=== PATIENT | female | born 1955 | race Caucasian/White ===

== ENCOUNTER 2022-12-10 14:22 | Inpatient (IN) ==
[2022-12-10] MEDS ORDERED: MoRPHine SULFATE 4 MG/ML 1 ML CARP\\VIAL IV PRN (15:01)
[2022-12-10] MEDS ORDERED: MoRPHine SULFATE 2 MG/ML CARP IV PRN ×2 (15:01→16:55)
[2022-12-10] MEDS ORDERED: SODIUM CHLORIDE 0.9% 1000ML 1,000 ML IV SCH (15:15)
--- NOTE | 2022-12-10 15:15 | Communication Note ---
Date of Service: December 10, 2022 I personally obtained a history from and examined the patient. Refer to Dr. Grimaldo's note for further details. Resident Activity Tracking Resident Involvement: Resident Care Provided Care Provided: Adult ED
[2022-12-10 15:17] LABS: Basophils # (auto) 0.03 K/uL (0-0.2); Basophils % (auto) 0.3 %; Eosinophils # (auto) 0.02 K/uL (0-0.50); Eosinophils % (auto) 0.2 %; Hematocrit (blood only) 40.5 % (37.0-47.0); Immature Granulocytes # (auto) 0.05 K/uL (0.01-0.20); Immature Granulocytes % (auto) 0.4 %; Lymphocytes # (auto) 0.36 K/uL (1.2-3.4); Lymphocytes % (auto) 3.1 %; Mean Corpuscular Hemoglobin 31.7 pg (25.0-34.0); Mean Corpuscular Hgb Conc 34.6 g/dL (32.0-36.0); Mean Corpuscular Volume 91.6 fL (80.0-100.0); Mean Platelet Volume 9.5 fL (9.4-12.4); Monocytes # (auto) 0.83 K/uL (0.11-0.59); Monocytes % (auto) 7.2 %; Neutrophils % (auto) 88.8 %; Platelet Count 270 K/uL (130-400); RDW Coefficient of Variation 13.9 % (11.5-14.5); RDW Standard Deviation 47.1 fL (36.4-46.3); Red Blood Count 4.42 M/uL (4.20-5.40); White Blood Count 11.59 K/ul (4.8-10.8)
[2022-12-10] MEDS ORDERED: ACETAMINOPHEN 1,000 MG/100 ML VIAL IV ONE (15:20)
--- NOTE | 2022-12-10 15:21 | XRay Report ---
SINGLE VIEW PELVIS; 2 VIEWS LEFT HIP CLINICAL HISTORY: Fall. Left hip pain. FINDINGS: AP view of the pelvis with AP and crosstable lateral views of the left hip are obtained. No prior studies are available for comparison at the time of dictation. The skeletal structures are ost eopenic. There is an impacted, mildly displaced, and angulated fracture of the left femoral neck. Ove rlying soft tissue edema is noted. No additional fracture is seen involving the right hip or the bony pelvis. Mild arthritic change involving space narrowing is seen in the hips. The sacroiliac joints a re normal. Lumbosacral spondylosis is partially visualized. Vascular calcifications are seen in the p ant. IMPRESSION: Left femoral neck fracture as above. Electronically signed by: Zenon Restrepo M.D. 12/10/2022 3:20 PM
--- NOTE | 2022-12-10 15:27 | XRay Report ---
SUPINE PORTABLE AP CHEST RADIOGRAPH CLINICAL HISTORY: Hip fracture. COMPARISON STUDY: No previous studies for comparison. FINDINGS: Lung volumes are normal. Lungs are clear. There is no pneumothorax or pleural effusion. Car diac size is normal. Mediastinal contours are normal. There is no evidence for pulmonary edema. Skinf old projects over the left lower chest. Mild right lower lung interstitial thickening is noted. This may be chronic. IMPRESSION: 1. No definite acute cardiopulmonary findings. 2. Mild asymmetric right lower lung interstitial thickening. This may be chronic. ACT 112: Negative or not required by law. Electronically signed by: Jose Elder M.D. 12/10/2022 3:25 PM
[2022-12-10 15:34] LABS: Albumin Globulin Ratio 1.8 (0.9-2); Albumin Level 4.6 gm/dl (3.4-5.0); BUN Creatinine Ratio 10.1 (10-20); Bilirubin,Total 0.6 mg/dl (0.2-1.0); Calcium 9.8 mg/dl (8.5-10.1); Est GFR (African American) 67.9 ml/min; Est GFR (Non-African American) 58.6 ml/min; Globulin 2.5 gm/dl (2.5-4.0); Potassium 3.5 mmol/L (3.5-5.1); Total Protein 7.1 gm/dl (6.0-8.3)
--- NOTE | 2022-12-10 15:43 | Electrocardiogram Report ---
Test Reason : Blood Pressure : / mmHG Vent. Rate : 062 BPM Atrial Rate : 062 BPM P-R Int : 138 ms QRS Dur : 104 ms QT Int : 428 ms P-R-T Axes : 077 064 077 degrees QTc Int : 434 ms Normal sinus rhythm Normal ECG No previous ECGs available Confirmed by Luis Smith ([id number]) on 12/10/2022 3:42:50 PM Referred By: Confirmed By:Luis Smith
[2022-12-10 16:03] LABS: Appearance Urine Clear (Clear); Bilirubin Urine Negative (Negative); Blood Urine Negative (Negative); Color Urine Yellow; Glucose Urine UA Negative (Negative); Ketones Urine Trace (Negative); Leukocyte Esterase Urine Negative (Negative); Nitrite Urine Negative (Negative); Protein Urine Negative (Negative); Specific Gravity Urine 1.011 (1.000-1.030); Urobilinogen Urine Negative (Negative); pH Urine 6.5 (4.5-7.5)
[2022-12-10] MEDS ORDERED: NALOXONE HCL 0.4 MG/1 ML VIAL/CARP IV PRN (16:55)
[2022-12-10] MEDS ORDERED: ONDANSETRON INJ 2 MG/ML 2 ML VIAL IV PRN (16:55)
[2022-12-10] MEDS ORDERED: ALUMINUM/MAGNESIUM SUSP 30 ML UDC PO PRN (16:55)
[2022-12-10] MEDS ORDERED: MAGNESIUM HYDROXIDE SUSP 30 ML UDC PO PRN (16:55)
[2022-12-10] MEDS ORDERED: bisacodyL 10 MG SUPP PR PRN (16:55)
--- NOTE | 2022-12-10 17:28 | History & Physical Report ---
Date of Service December 10, 2022 Assessment & Plan (1) Fracture of femoral neck, left: Plan: 67-year-old female with LEFT femoral neck fracture status post ground-level fall knee admitted by hospitalist service for evaluation for surgical intervention. * Patient sustained a ground-level fall. Thankfully, she is without significant pain at this time. We will order as needed pain medications. * Consult orthopedic surgery for definitive management. * Complete bedrest at this time. * Currently working on receiving remaining records from the [facility] in [place]. * Thankfully, they did share her med list, so we have a general idea of the patient's medical history. * Will make NPO after midnight. (2) Hypertension: Plan: * Continue home antihypertensives as prescribed. (3) Dyslipidemia: Plan: * Remains on statin. (4) Bipolar disorder: Plan: * Continue home medication combination (5) PTSD (post-traumatic stress disorder): Plan: * Continues to be well balanced at home (6) Multiple sclerosis: Plan: * Patient without previous flares and has not required steroids in the past. She will continue with her home medications. (7) Cigarette smoker: Plan: * Encouraged smoking cessation. History of Present Illness Chief Complaint: LEFT Femoral Neck Fracture Primary Care Provider: [facility] Patient is a 67-year-old female with a significant past medical history of hypertension, dyslipidemia, depression, PTSD, osteopenia, osteoporosis, multiple sclerosis and thyroid goiter. Patient follows with the [facility] in [place]. She moved to [facility] approximately 2 years ago, but continues with care there institution. She reports that she sustained a ground-level fall landing on the lateral aspect of her LEFT hip today while outside smoking a cigarette. She did not strike her head. There is no loss of consciousness. The patient had no prefall symptoms of headaches, dizziness, lightheadedness, nausea, vomiting, diaphoresis, or presyncope otherwise. She reports that she was able to crawl into a seated position and eventually was able to ambulate to her apartment. When attempting to tie her shoes, she had intense pain to the LEFT-sided hip which caused her to fall again landing on her RIGHT knee. Patient intermittently complains of pain to the LEFT-sided hip. She denies any prior history of fracture or injury otherwise. Patient takes no blood thinners. She is uncertain of all of her medications, but reports that they are on record at the [facility]. She reports no history of significant surgeries in the past. She does smoke approximate 5 to 6 cigarettes daily. Patient denies any current headache, dizziness, headedness, chest pain, palpitations and shortness of breath, nausea, vomiting, abdominal discomfort, or numbness/weakness to the extremities. Allergies Allergy/AdvReac Type Severity Reaction Status Date / Time alprazolam [From Xanax] Allergy Cramping Verified 12/10/22 15:34 of the Muscles aripiprazole [From Abilify] Allergy Cramping Verified 12/10/22 15:34 of the Muscles lisinopril Allergy Cramping Verified 12/10/22 15:34 of the Muscles Home Medications Medication Instructions Recorded Confirmed Type alendronate 70 mg tablet 70 mg PO WK 12/10/22 12/10/22 History amlodipine 10 mg tablet 10 mg PO DAILY 12/10/22 12/10/22 History baclofen 10 mg tablet 10 mg PO BID 12/10/22 12/10/22 History calcium citrate 315 mg-vitamin D3 2 tab PO DAILY 12/10/22 12/10/22 History 5 mcg (200 unit) tablet (Calcium Citrate + D) cyclobenzaprine 10 mg tablet 10 mg PO BID PRN Muscle Spasm 12/10/22 12/10/22 History dalfampridine 10 mg 10 mg PO Q12H 12/10/22 12/10/22 History tablet,extended release,12 hr docusate sodium 100 mg capsule 100 mg PO DAILY 12/10/22 12/10/22 History fluticasone propionate 50 2 spray intranasal DAILY 12/10/22 12/10/22 History mcg/actuation nasal spray,suspension (Flonase Allergy Relief) gabapentin 400 mg capsule 400 mg PO TID 12/10/22 12/10/22 History lamotrigine 200 mg tablet 200 mg PO BID 12/10/22 12/10/22 History (Lamictal) oxybutynin chloride 5 mg 5 mg PO HS 12/10/22 12/10/22 History tablet,extended release 24 hr pantoprazole 40 mg tablet,delayed 40 mg PO DAILY 12/10/22 12/10/22 History release potassium chloride 20 mEq 10 meq PO DAILY 12/10/22 12/10/22 History tablet,extended release rosuvastatin 20 mg tablet 10 mg PO HS 12/10/22 12/10/22 History venlafaxine 150 mg 150 mg PO BID 12/10/22 12/10/22 History capsule,extended release 24 hr ziprasidone HCl 20 mg capsule 20 mg PO DAILY 12/10/22 12/10/22 History Past Med/Surg History Social History Smoking Status: Current every day smoker Tobacco Type: Cigarettes Feels Safe at Home: Yes Review of Systems Review of Systems: A complete 10 point review of systems was reviewed with the patient with pertinent positives and negatives as per history of present illness. All else were negative. Physical Exam Physical Exam: VITAL SIGNS - Vital signs and nursing notes were reviewed. GENERAL - 67-year-old female appearing her stated age and in noticeable discomfort throughout the exam. HEAD - NC/AT. EYES - PERRL with EOMI bilaterally. Sclera anicteric. NOSE - Midline and without cyanosis. No epistaxis or purulent drainage noted. MOUTH/OROPHARYNX - Without perioral cyanosis. NECK - Neck with FROM. LUNGS - Chest wall symmetric without accessory muscle use, intercostals retractions, or central cyanosis. Normal vesicular breath sounds CTA B/L. No wheezes, rales, or rhonchi appreciated. CARDIAC - RRR with S1/S2. No murmur, rubs, or gallops appreciated. ABDOMEN - Abdominal contour without pulsations or visible masses. BS normoactive all four quadrants. No tenderness, palpable masses, hepatosplenomegaly, or ascites noted. MUSCULOSKELETAL - LEFT hip with moderate tenderness to palpation appreciated o randee the lateral malleolus. No tenderness extending into the upper leg or buttocks. Decreased AROM at affected joint. NEUROLOGIC/VASCULAR - Neurovascularly intact distally with +3/5 dorsalis pedis pulses palpated bilaterally. Normal sensation to light and sharp touch appreciated distally. PSYCH - A&Ox3 and cooperates fully with examiner. Pt is very pleasant and interacts well with examiner. Results & Data Results & Data ([facility]) Vital Signs (Past 12 Hours) Vital Signs Temp Pulse Pulse Resp BP BP Pulse Ox 12/10/22 16:40 83 23 96 12/10/22 16:30 87 20 99 12/10/22 16:20 73 20 98 12/10/22 16:10 71 20 97 12/10/22 16:00 75 24 97 12/10/22 16:00 183/90 H 12/10/22 15:50 78 21 97 12/10/22 15:45 69 18 95 12/10/22 15:45 178/90 H 12/10/22 15:40 82 19 90 12/10/22 15:30 80 21 92 12/10/22 15:30 153/107 H 12/10/22 15:20 79 20 97 12/10/22 15:15 178/97 H 12/10/22 15:15 76 19 91 12/10/22 15:12 71 14 90 12/10/22 14:50 67 20 97 12/10/22 14:45 202/122 H 12/10/22 14:45 64 13 98 12/10/22 14:40 74 12 96 12/10/22 14:31 63 22 95 12/10/22 14:34 71 20 188/98 H 98 12/10/22 14:30 36.7 C 65 20 188/98 H 95 O2 Del Method 12/10/22 16:40 12/10/22 16:30 12/10/22 16:20 12/10/22 16:10 12/10/22 16:00 12/10/22 16:00 12/10/22 15:50 12/10/22 15:45 12/10/22 15:45 12/10/22 15:40 12/10/22 15:30 12/10/22 15:30 12/10/22 15:20 12/10/22 15:15 12/10/22 15:15 12/10/22 15:12 12/10/22 14:50 12/10/22 14:45 12/10/22 14:45 12/10/22 14:40 12/10/22 14:31 12/10/22 14:34 Room Air 12/10/22 14:30 Room Air Supervising Physician Co-Signing Physician Notes Patient seen and examined, chart reviewed, case discussed with Francisco J Tipton PA-C and I agree with the assessment and plan as above except as otherwise noted Labs and images reviewed Ricarda is a 67-year-old female with a past medical history of tobacco use, PTSD, bipolar disorder, dyslipidemia, hypertension who presents after having a mechanical ground-level fall striking her left hip without lightheadedness/dizziness/syncope/presyncope and who was found to have a hip fracture on evaluation. At bedside left hip is tender, leg is slightly s hortened, able to wiggle toes bilaterally and sensation to soft touch is intact bilaterally without asymmetry. Cap refill is brisk bilaterally, PT pulses intact bilaterally. No wheezing, no lightheadedness, no chest pain. Will admit with surgical consultation for operative intervention of left femoral neck fracture. PG Care Time/CCT Total # of Minutes Spent Total Time Spent with Patient: Total time spent is greater than 50% in coordination of care (as documented) at patient's floor/unit and/or counseling patient: Coding Level of Care Code 24378 INT INP/OBS CARE 375MIN Diagnoses Fracture of femoral neck, left S72.002A Hypertension I10 Dyslipidemia E78.5 Bipolar disorder F31.9 PTSD (post-traumatic stress disorder) F43.10 Multiple sclerosis G35 Cigarette smoker F17.210 Time Spent (min) 80
[2022-12-10 18:13] LABS: INR 0.9 (0.9-1.1); Partial Thromboplastin Time 26.4 Seconds (21.0-31.0); Prothrombin Time 9.8 Seconds (9.0-12.0)
--- NOTE | 2022-12-10 18:48 | Emergency Department Note ---
Impression & Plan Closed left hip fracture ED Provider Note INFORMANT: Patient ED PROVIDER(S): David Grimaldo DO CHIEF COMPLAINT: Fall, left hip pain PLAN: Disposition: Admission Condition: Stable Outpatient prescription management: none Referral: PCP MEDICAL DECISION MAKING: This is a 67-year-old female who presents to the ED with a chief complaint of left hip pain. The patient had a ground-level fall earlier today. She has some shortening and internal rotation of her left leg. Denies striking her head or loss of consciousness. The patient has good distal pulses. Her physical exam reveals some discomfort with motion. A x-ray shows a left hip fracture. Chest x-ray was negative for pneumonia or pneumothorax. Normal sinus rhythm was noted on the EKG. CBC did not show anemia or leukocytosis. No electrolyte abnormality. Kidney function was adequate. Urine did not show infection. I did speak with the hospitalist about the patient. He will see the patient for further evaluation and care. Triage Nursing notes reviewed. Vital Signs: reviewed Prior /Outside records reviewed: none Differential diagnosis: Differential includes hip fracture, other injuries, anemia, electrolyte abnormality, other Diagnostics, as interpreted by me: 12 lead ECG: Normal sinus rhythm at a rate of 62. No ST elevation. No PVCs. Normal QTC. Cardiac Monitoring: none Medical decision rules: none Imaging studies: X-ray of the left hip reveals a hip fracture. Chest x-ray did not show acute process. Procedures: none. Critical care: none. HPI: See MDM above. PAST MEDICAL HISTORY: See Below PAST SURGICAL HISTORY: See Below SOCIAL HISTORY: See Below HOME MEDICATIONS: See Below ALLERGIES: See Below VITALS: See Below PHYSICAL EXAMINATION: CONSTITUTIONAL/VITAL SIGNS: Reviewed GENERAL: Non-toxic in appearance. INTEGUMENTARY: Warm, dry, and [place]. HEAD: Normocephalic. EYES: without scleral icterus. ENT/OROPHARYNX: clear and moist. RESPIRATORY: No increased work of breathing. Lungs clear. CARDIOVASCULAR: Regular rate. Regular rhythm. GI/ABDOMEN: Soft and nontender. . EXTREMITIES: Left leg is shortened and internally rotated with discomfort of the left hip with any motion and palpation. NEUROLOGICAL: Intact without focal deficits. PSYCHIATRIC: Normal affect. MUSCULOSKELETAL: Normal. TRIAGE NURSING DOCUMENTATION REVIEWED. Past Med/Surg History Social History Smoking Status: Current every day smoker Tobacco Type: Cigarettes Feels Safe at Home: Yes Allergies Allergies Allergy/AdvReac Type Severity Reaction Status Date / Time alprazolam [From Xanax] Allergy Cramping Verified 12/10/22 15:34 of the Muscles aripiprazole [From Abilify] Allergy Cramping Verified 12/10/22 15:34 of the Muscles lisinopril Allergy Cramping Verified 12/10/22 15:34 of the Muscles Home Meds Home Medications Medication Instructions Recorded Confirmed alendronate 70 mg tablet 70 mg PO WK 12/10/22 12/10/22 amlodipine 10 mg tablet 10 mg PO DAILY 12/10/22 12/10/22 baclofen 10 mg tablet 10 mg PO BID 12/10/22 12/10/22 calcium citrate 315 mg-vitamin D3 2 tab PO DAILY 12/10/22 12/10/22 5 mcg (200 unit) tablet (Calcium Citrate + D) cyclobenzaprine 10 mg tablet 10 mg PO BID PRN Muscle Spasm 12/10/22 12/10/22 dalfampridine 10 mg 10 mg PO Q12H 12/10/22 12/10/22 tablet,extended release,12 hr docusate sodium 100 mg capsule 100 mg PO DAILY 12/10/22 12/10/22 fluticasone propionate 50 2 spray intranasal DAILY 12/10/22 12/10/22 mcg/actuation nasal spray,suspension (Flonase Allergy Relief) gabapentin 400 mg capsule 400 mg PO TID 12/10/22 12/10/22 lamotrigine 200 mg tablet 200 mg PO BID 12/10/22 12/10/22 (Lamictal) oxybutynin chloride 5 mg 5 mg PO HS 12/10/22 12/10/22 tablet,extended release 24 hr pantoprazole 40 mg tablet,delayed 40 mg PO DAILY 12/10/22 12/10/22 release potassium chloride 20 mEq 10 meq PO DAILY 12/10/22 12/10/22 tablet,extended release rosuvastatin 20 mg tablet 10 mg PO HS 12/10/22 12/10/22 venlafaxine 150 mg 150 mg PO BID 12/10/22 12/10/22 capsule,extended release 24 hr ziprasidone HCl 20 mg capsule 20 mg PO DAILY 12/10/22 12/10/22 Results & Data (ED) Vital Signs Vital Signs - 24 hr 12/10/22 14:30 12/10/22 14:34 12/10/22 14:31 Temperature 36.7 C Temperature Source Oral Pulse Rate 65 63 Pulse Rate [Apical] 71 Pulse Rate from SpO2 Sensor 63 Pulse Rhythm Regular Pulse Rhythm [Apical] Regular Pulse Strength Normal Pulse Strength [Apical] Normal Respiratory Rate 20 20 22 Respiratory Effort / Characteristics Non-Labored Spontaneous Non-Labored Spontaneous Respiratory Depth Normal Normal Respiratory Pattern Regular Regular Blood Pressure 188/98 H Blood Pressure [Left Arm] 188/98 H Blood Pressure Mean 128 Blood Pressure Mean [Left Arm] 128 Pulse Oximetry 95 98 95 Oxygen Delivery Method Room Air Room Air Sepsis Recent Fever Within 48 Hours No Sepsis New/Unexplained Change in Mental Status No Sepsis Action Taken by Nursing No Action Required 12/10/22 14:40 12/10/22 14:45 12/10/22 14:45 Temperature Temperature Source Pulse Rate 74 64 Pulse Rate [Apical] Pulse Rate from SpO2 Sensor 74 66 Pulse Rhythm Pulse Rhythm [Apical] Pulse Strength Pulse Strength [Apical] Respiratory Rate 12 13 Respiratory Effort / Characteristics Respiratory Depth Respiratory Pattern Blood Pressure 202/122 H Blood Pressure [Left Arm] Blood Pressure Mean 148 Blood Pressure Mean [Left Arm] Pulse Oximetry 96 98 Oxygen Delivery Method Sepsis Recent Fever Within 48 Hours Sepsis New/Unexplained Change in Mental Status Sepsis Action Taken by Nursing 12/10/22 14:50 12/10/22 15:12 12/10/22 15:15 Temperature Temperature Source Pulse Rate 67 71 76 Pulse Rate [Apical] Pulse Rate from SpO2 Sensor 71 76 Pulse Rhythm Pulse Rhythm [Apical] Pulse Strength Pulse Strength [Apical] Respiratory Rate 20 14 19 Respiratory Effort / Characteristics Respiratory Depth Respiratory Pattern Blood Pressure Blood Pressure [Left Arm] Blood Pressure Mean Blood Pressure Mean [Left Arm] Pulse Oximetry 97 90 91 Oxygen Delivery Method Sepsis Recent Fever Within 48 Hours Sepsis New/Unexplained Change in Mental Status Sepsis Action Taken by Nursing 12/10/22 15:15 12/10/22 15:20 12/10/22 15:30 Temperature Temperature Source Pulse Rate 79 Pulse Rate [Apical] Pulse Rate from SpO2 Sensor 78 Pulse Rhythm Pulse Rhythm [Apical] Pulse Strength Pulse Strength [Apical] Respiratory Rate 20 Respiratory Effort / Characteristics Respiratory Depth Respiratory Pattern Blood Pressure 178/97 H 153/107 H Blood Pressure [Left Arm] Blood Pressure Mean 124 122 Blood Pressure Mean [Left Arm] Pulse Oximetry 97 Oxygen Delivery Method Sepsis Recent Fever Within 48 Hours Sepsis New/Unexplained Change in Mental Status Sepsis Action Taken by Nursing 12/10/22 15:30 12/10/22 15:40 12/10/22 15:45 Temperature Temperature Source Pulse Rate 80 82 Pulse Rate [Apical] Pulse Rate from SpO2 Sensor 80 82 Pulse Rhythm Pulse Rhythm [Apical] Pulse Strength Pulse Strength [Apical] Respiratory Rate 21 19 Respiratory Effort / Characteristics Respiratory Depth Respiratory Pattern Blood Pressure 178/90 H Blood Pressure [Left Arm] Blood Pressure Mean 119 Blood Pressure Mean [Left Arm] Pulse Oximetry 92 90 Oxygen Delivery Method Sepsis Recent Fever Within 48 Hours Sepsis New/Unexplained Change in Mental Status Sepsis Action Taken by Nursing 12/10/22 15:45 12/10/22 15:50 12/10/22 16:00 Temperature Temperature Source Pulse Rate 69 78 Pulse Rate [Apical] Pulse Rate from SpO2 Sensor 69 78 Pulse Rhythm Pulse Rhythm [Apical] Pulse Strength Pulse Strength [Apical] Respiratory Rate 18 21 Respiratory Effort / Characteristics Respiratory Depth Respiratory Pattern Blood Pressure 183/90 H Blood Pressure [Left Arm] Blood Pressure Mean 121 Blood Pressure Mean [Left Arm] Pulse Oximetry 95 97 Oxygen Delivery Method Sepsis Recent Fever Within 48 Hours Sepsis New/Unexplained Change in Mental Status Sepsis Action Taken by Nursing 12/10/22 16:00 12/10/22 16:10 12/10/22 16:20 Temperature Temperature Source Pulse Rate 75 71 73 Pulse Rate [Apical] Pulse Rate from SpO2 Sensor 74 72 73 Pulse Rhythm Pulse Rhythm [Apical] Pulse Strength Pulse Strength [Apical] Respiratory Rate 24 20 20 Respiratory Effort / Characteristics Respiratory Depth Respiratory Pattern Blood Pressure Blood Pressure [Left Arm] Blood Pressure Mean Blood Pressure Mean [Left Arm] Pulse Oximetry 97 97 98 Oxygen Delivery Method Sepsis Recent Fever Within 48 Hours Sepsis New/Unexplained Change in Mental Status Sepsis Action Taken by Nursing 12/10/22 16:30 12/10/22 16:40 12/10/22 17:36 Temperature Temperature Source Pulse Rate 87 83 87 Pulse Rate [Apical] Pulse Rate from SpO2 Sensor 87 85 Pulse Rhythm Regular Pulse Rhythm [Apical] Pulse Strength Pulse Strength [Apical] Respiratory Rate 20 23 20 Respiratory Effort / Characteristics Respiratory Depth Respiratory Pattern Blood Pressure Blood Pressure [Left Arm] Blood Pressure Mean Blood Pressure Mean [Left Arm] Pulse Oximetry 99 96 96 Oxygen Delivery Method Room Air Sepsis Recent Fever Within 48 Hours Sepsis New/Unexplained Change in Mental Status Sepsis Action Taken by Nursing 12/10/22 16:50 12/10/22 17:00 12/10/22 17:00 Temperature Temperature Source Pulse Rate 83 80 Pulse Rate [Apical] Pulse Rate from SpO2 Sensor 83 81 Pulse Rhythm Pulse Rhythm [Apical] Pulse Strength Pulse Strength [Apical] Respiratory Rate 22 20 Respiratory Effort / Characteristics Respiratory Depth Respiratory Pattern Blood Pressure 167/93 H Blood Pressure [Left Arm] Blood Pressure Mean 117 Blood Pressure Mean [Left Arm] Pulse Oximetry 96 97 Oxygen Delivery Method Sepsis Recent Fever Within 48 Hours Sepsis New/Unexplained Change in Mental Status Sepsis Action Taken by Nursing 12/10/22 17:10 12/10/22 17:20 12/10/22 17:30 Temperature Temperature Source Pulse Rate 81 89 82 Pulse Rate [Apical] Pulse Rate from SpO2 Sensor 81 88 86 Pulse Rhythm Pulse Rhythm [Apical] Pulse Strength Pulse Strength [Apical] Respiratory Rate 20 18 Respiratory Effort / Characteristics Respiratory Depth Respiratory Pattern Blood Pressure Blood Pressure [Left Arm] Blood Pressure Mean Blood Pressure Mean [Left Arm] Pulse Oximetry 95 94 93 Oxygen Delivery Method Sepsis Recent Fever Within 48 Hours Sepsis New/Unexplained Change in Mental Status Sepsis Action Taken by Nursing 12/10/22 18:00 Temperature Temperature Source Pulse Rate Pulse Rate [Apical] 82 Pulse Rate from SpO2 Sensor Pulse Rhythm Pulse Rhythm [Apical] Regular Pulse Strength Pulse Strength [Apical] Normal Respiratory Rate 19 Respiratory Effort / Characteristics Respiratory Depth Normal Respiratory Pattern Regular Blood Pressure Blood Pressure [Left Arm] 156/84 H Blood Pressure Mean Blood Pressure Mean [Left Arm] 108 Pulse Oximetry 96 Oxygen Delivery Method Room Air Sepsis Recent Fever Within 48 Hours Sepsis New/Unexplained Change in Mental Status Sepsis Action Taken by Nursing Laboratory Data 12/10/22 14:47 12/10/22 14:47 Lab Results 12/10/22 12/10/22 12/10/22 Range/Units 14:47 14:47 14:47 WBC 11.59 H (4.8-10.8) K/ul RBC 4.42 (4.20-5.40) M/uL Hgb 14.0 (12.0-16.0) g/dl Hct 40.5 (37.0-47.0) % MCV 91.6 (80.0-100.0) fL MCH 31.7 (25.0-34.0) pg MCHC 34.6 (32.0-36.0) g/dL RDW Std Deviation 47.1 H (36.4-46.3) fL RDW Coeff of Dick 13.9 (11.5-14.5) % Plt Count 270 (130-400) K/uL MPV 9.5 (9.4-12.4) fL Immature Gran % (Auto) 0.4 % Neut % (Auto) 88.8 % Lymph % (Auto) 3.1 % [place] % (Auto) 7.2 % Eos % (Auto) 0.2 % Baso % (Auto) 0.3 % Neut # (Auto) 10.30 H (1.40-6.50) K/uL Lymph # (Auto) 0.36 L (1.2-3.4) K/uL [place] # (Auto) 0.83 H (0.11-0.59) K/uL Eos # (Auto) 0.02 (0-0.50) K/uL Baso # (Auto) 0.03 (0-0.2) K/uL Immature Gran # (Auto) 0.05 (0.01-0.20) K/uL PT Cancelled INR Cancelled APTT Cancelled PTT Ratio Cancelled Sodium 139 (136-145) mmol/L Potassium 3.5 (3.5-5.1) mmol/L Chloride 101 (98-107) mmol/L Carbon Dioxide 28 (21-32) mmol/L Anion Gap 10 (3-11) BUN 10 (6-23) mg/dl Creatinine 0.99 (0.6-1.2) mg/dl Est Cr Clr Drug Dosing 50.0 ml/min Est GFR ( Amer) 67.9 ml/min Est GFR (Non-Af Amer) 58.6 ml/min BUN/Creatinine Ratio 10.1 (10-20) Glucose 117 H (70-99(Fasting)) mg/dl Calcium 9.8 (8.5-10.1) mg/dl Total Bilirubin 0.6 (0.2-1.0) mg/dl AST 33 (13-39) U/L ALT 21 (7-52) U/L Alkaline Phosphatase 104 (34-104) U/L Total Protein 7.1 (6.0-8.3) gm/dl Albumin 4.6 (3.4-5.0) gm/dl Globulin 2.5 (2.5-4.0) gm/dl Albumin/Globulin Ratio 1.8 (0.9-2) Urine Color Urine Appearance (Clear) Urine pH (4.5-7.5) Ur Specific [place] (1.000-1.030) Urine Protein (Negative) Urine Glucose (UA) (Negative) Urine Ketones (Negative) Urine Blood (Negative) Urine Nitrite (Negative) Urine Bilirubin (Negative) Urine Urobilinogen (Negative) Ur Leukocyte Esterase (Negative) SARS-CoV-2, RNA, NAAT (NEGATIVE) 12/10/22 12/10/22 12/10/22 Range/Units 15:48 16:57 18:14 WBC (4.8-10.8) K/ul RBC (4.20-5.40) M/uL Hgb (12.0-16.0) g/dl Hct (37.0-47.0) % MCV (80.0-100.0) fL MCH (25.0-34.0) pg MCHC (32.0-36.0) g/dL RDW Std Deviation (36.4-46.3) fL RDW Coeff of Dick (11.5-14.5) % Plt Count (130-400) K/uL MPV (9.4-12.4) fL Immature Gran % (Auto) % Neut % (Auto) % Lymph % (Auto) % [place] % (Auto) % Eos % (Auto) % Baso % (Auto) % Neut # (Auto) (1.40-6.50) K/uL Lymph # (Auto) (1.2-3.4) K/uL [place] # (Auto) (0.11-0.59) K/uL Eos # (Auto) (0-0.50) K/uL Baso # (Auto) (0-0.2) K/uL Immature Gran # (Auto) (0.01-0.20) K/uL PT 9.8 INR 0.9 APTT 26.4 PTT Ratio 1.0 Sodium (136-145) mmol/L Potassium (3.5-5.1) mmol/L Chloride (98-107) mmol/L Carbon Dioxide (21-32) mmol/L Anion Gap (3-11) BUN (6-23) mg/dl Creatinine (0.6-1.2) mg/dl Est Cr Clr Drug Dosing ml/min Est GFR ( Amer) ml/min Est GFR (Non-Af Amer) ml/min BUN/Creatinine Ratio (10-20) Glucose (70-99(Fasting)) mg/dl Calcium (8.5-10.1) mg/dl Total Bilirubin (0.2-1.0) mg/dl AST (13-39) U/L ALT (7-52) U/L Alkaline Phosphatase (34-104) U/L Total Protein (6.0-8.3) gm/dl Albumin (3.4-5.0) gm/dl Globulin (2.5-4.0) gm/dl Albumin/Globulin Ratio (0.9-2) Urine Color Yellow Urine Appearance Clear (Clear) Urine pH 6.5 (4.5-7.5) Ur Specific [place] 1.011 (1.000-1.030) Urine Protein Negative (Negative) Urine Glucose (UA) Negative (Negative) Urine Ketones Trace H (Negative) Urine Blood Negative (Negative) Urine Nitrite Negative (Negative) Urine Bilirubin Negative (Negative) Urine Urobilinogen Negative (Negative) Ur Leukocyte Esterase Negative (Negative) SARS-CoV-2, RNA, NAAT NEGATIVE (NEGATIVE) Administered Medications Sodium Chloride (Nss 1000ml) 1,000 mls @ 75 mls/hr IV .[id number] WIL Stop: 12/11/22 04:34 Last Admin: 12/10/22 15:32 Dose: 75 mls/hr Documented By: [facility] Discontinued Medications Acetaminophen (Ofirmev) 1,000 mg in 100 mls @ 400 mls/hr IV ONE ONE Stop: 12/10/22 15:34 Last Infusion: 12/10/22 15:53 Dose: 0 mls/hr Documented By: [facility] Admin: 12/10/22 15:31 Dose: 400 mls/hr Documented By: [facility] Imaging Data Radiologist's Impression: Hip/Pelvis X-Ray 12/10/22 14:37 SINGLE VIEW PELVIS; 2 VIEWS LEFT HIP CLINICAL HISTORY: Fall. Left hip pain. FINDINGS: AP view of the pelvis with AP and crosstable lateral views of the left hip are obtained. No prior studies are available for comparison at the time of dictation. The skeletal structures are osteopenic. There is an impacted, mildly displaced, and angulated fracture of the left femoral neck. Overlying soft tis kobe edema is noted. No additional fracture is seen involving the right hip or the bony pelvis. Mild arthritic change involving space narrowing is seen in the hips. The sacroiliac joints are normal. Lumbosacral spondylosis is partially visualized. Vascular calcifications are seen in the pelvis. IMPRESSION: Left femoral neck fracture as above. Electronically signed by: Zenon Restrepo M.D. 12/10/2022 3:20 PM Chest X-Ray 12/10/22 15:05 SUPINE PORTABLE AP CHEST RADIOGRAPH CLINICAL HISTORY: Hip fracture. COMPARISON STUDY: No previous studies for comparison. FINDINGS: Lung volumes are normal. Lungs are clear. There is no pneumothorax or pleural effusion. Cardiac size is normal. Mediastinal contours are normal. There is no evidence for pulmonary edema. [place] projects over the left lower chest. Mild right lower lung interstitial thickening is noted. This may be chronic. IMPRESSION: 1. No definite acute cardiopulmonary findings. 2. Mild asymmetric right lower lung interstitial thickening. This may be chronic. ACT 112: Negative or not required by law. Electronically signed by: Jose Elder M.D. 12/10/2022 3:25 PM Discharge Plan Visit Data Chief Complaint: Hip Pain Stated Complaint: FALL, LEFT HIP PAIN ED Provider: David Grimaldo Discharge Problem: Closed left hip fracture Patient Disposition: Being Evaluated by Hospitalist Forms Stand Alone Forms: [facility], [facility], Virtual Emergency Department, Important Visit Information Prescriptions Prescriptions: No Action cyclobenzaprine 10 mg Tablet 10 mg PO BID PRN (Reason: Muscle Spasm) alendronate 70 mg Tablet 70 mg PO WK baclofen 10 mg Tablet 10 mg PO BID amlodipine 10 mg Tablet 10 mg PO DAILY docusate sodium 100 mg Capsule 100 mg PO DAILY lamotrigine [Lamictal] 200 mg Tablet 200 mg PO BID gabapentin 400 mg Capsule 400 mg PO TID pantoprazole 40 mg Tablet,Delayed Release (Dr/Ec) 40 mg PO DAILY oxybutynin chloride 5 mg Tablet Extended Release 24hr 5 mg PO HS rosuvastatin 20 mg Tablet 10 mg PO HS Rx Instructions: 1/2 tablet dose venlafaxine 150 mg Capsule,Extended Release 24hr 150 mg PO BID ziprasidone HCl 20 mg Capsule 20 mg PO DAILY Rx Instructions: give with food (meal/snack) fluticasone propionate [Flonase Allergy Relief] 50 mcg/actuation [place],Suspension 2 spray INTRANASAL DAILY Rx Instructions: administer into each nostril calcium citrate-vitamin D3 [Calcium Citrate + D] 315 mg-5 mcg (200 unit) Tablet 2 tab PO DAILY dalfampridine 10 mg Tablet Extended Release 12 Hr 10 mg PO Q12H potassium chloride 20 mEq Tablet Extended Release 10 meq PO DAILY Rx Instructions: 1/2 tablet dose Referrals Referrals: [facility] [Primary Care Provider] -
[2022-12-10] MEDS: VENLAFAXINE HCL XR 150 MG CAPXR PO SCH (22:27)
[2022-12-10] MEDS: ROSUVASTATIN CALCIUM 10 MG TAB PO SCH (22:27)
[2022-12-10] MEDS: GABAPENTIN 400 MG CAP PO SCH (22:28)
[2022-12-10] MEDS: DOCUSATE SODIUM/SENNA 50/8.6MG TAB PO SCH (22:28)
[2022-12-10] MEDS: BACLOFEN 10 MG TAB PO SCH (22:28)
[2022-12-10] MEDS: lamoTRIgine 100 MG TAB PO SCH (22:29)
[2022-12-10] MEDS: OXYBUTYNIN CHLORIDE XL 5 MG TABCR PO SCH (22:29)
[2022-12-10] MEDS: KETOROLAC TROMETHAMINE 15 MG/ML VIAL IV PRN (22:30)
[2022-12-11] MEDS: ACETAMINOPHEN 325 MG TAB PO PRN (00:54)
[2022-12-11] MEDS: CYCLOBENZAPRINE HCL 10 MG TAB PO PRN (00:54)
--- NOTE | 2022-12-11 07:13 | Hospitalist Progress Note ---
Date of Service December 11, 2022 Assessment & Plan (1) Fracture of femoral neck, left: (2) Hypertension: (3) Dyslipidemia: (4) Bipolar disorder: (5) PTSD (post-traumatic stress disorder): (6) Multiple sclerosis: (7) Cigarette smoker: Plan Ricarda is a 67 F with history of MS, PTSD, bipolar disorder, dyslipidemia, HTN, and tobacco use (cigarette smoking) who presented for evaluation after a ground- level fall and was admitted for surgical management of a left femoral neck fracture. Left Femoral Neck Fracture - Known history of osteopenia/osteoporosis, receives care at [facility] (records requested) - Patient has been on Alendronate 70 mg PO weekly for 3 months - She takes calcium + vitamin D supplements at home - XR showing L femoral neck fracture - Orthopedics consulted --- Surgery scheduled tomorrow morning, NPO at midnight, continue bedrest --- Ordered Vitamin D supplementation inpatient --- Pain controlled with current regimen --- Counseled patient on the importance of smoking cessation in the setting of osteopenia/osteoporosis Chronic Conditions: HTN - continue home Amlodipine 10 mg Dyslipidemia - continue home Rosuvastatin PTSD/Bipolar - continue home medications MS - no prior flares or steroid requirement, continue home regimen FEN: Heart Healthy, NPO @ midnight Code status: Full Code DVT ppx: SCD Isolation: None Dispo:Med/Surg Admission and Anticipated Discharge Date Admission Date: December 10, 2022 Supervising Physician Co-Signing Physician Notes I personally examined the patient and verified all vaz points of history and exam, discussed case, and agree with decision making with Dr Yañez pain controlled for OR later vitals noted nad heent nc at mmm breathing unlabored no accessory muscles good effort skin no rashes no pallor or icterus presumed osteoporotic hip fracture - OR. pain control. outpt bone health management. smoke cessation. otherwise as above Subjective 2/2: Patient resting comfortably in bed upon arrival, notes that her hip pain is 9/10, but is improved with medication. She notes that she believes that she fell at home because she spun around too quickly and she forgot she had her heel lifts in that day. She notes that she only hit her hip when she fell. Patient denies any chest pain, dyspnea, pleuritic pain, abdominal discomfort or bowel/bladder changes. She is looking forward to physical therapy to regain her strength so that she can get back to walking and resistance training. Review of Systems Review of Systems: As per HPI Physical Exam Physical Exam: Gen: NAD, alert, interactive Resp:Non-labored, no wheezing/rhonchi/rales, CTAB CV:RRR, normal S1/S2, no M/R/G Abd: Soft, non-distended, no TTP, normoactive bowels, no masses Extr: 2+ dp bilaterally, no edema, LLE externally rotated, TTP of hip, no ecchymosis or erythema Skin: No rashes lesions or erythema Results & Data Results & Data ([facility]) Vital Signs (Past 12 Hours) Vital Signs Temp Pulse Pulse Pulse Resp BP BP 12/11/22 01:08 36.9 C 78 16 173/87 H 12/10/22 21:30 12/10/22 21:30 36.9 C 80 16 12/10/22 21:00 74 20 12/10/22 20:00 80 21 12/10/22 20:00 182/92 H 12/10/22 19:50 79 21 12/10/22 19:40 77 21 12/10/22 19:30 84 22 12/10/22 19:20 80 18 BP Pulse Ox O2 Del Method 12/11/22 01:08 99 Room Air 12/10/22 21:30 Room Air 12/10/22 21:30 171/93 H 97 Room Air 12/10/22 21:00 96 Room Air 12/10/22 20:00 92 12/10/22 20:00 12/10/22 19:50 94 12/10/22 19:40 95 12/10/22 19:30 94 12/10/22 19:20 95 Resident Activity Tracking Resident Involvement: Resident Care Provided Care Provided: Adult Hospital Medicine
[2022-12-11] MEDS: PANTOprazole 40 MG TAB PO SCH (09:20)
[2022-12-11] MEDS: amLODIPine BESYLATE 5 MG TAB PO SCH (09:21)
[2022-12-11] MEDS: CALCIUM 600MG + VIT D 400 IU TAB PO SCH (09:21)
[2022-12-11] MEDS: POTASSIUM CHLORIDE 10 MEQ TABCR PO SCH (09:21)
[2022-12-11] MEDS: DOCUSATE SODIUM 100 MG CAP PO SCH (09:22)
[2022-12-11] MEDS: VENLAFAXINE HCL XR 150 MG CAPXR PO SCH ×2 (09:22→20:10)
[2022-12-11] MEDS: BACLOFEN 10 MG TAB PO SCH ×2 (09:22→20:12)
[2022-12-11] MEDS: GABAPENTIN 400 MG CAP PO SCH ×3 (09:23→20:14)
[2022-12-11] MEDS: FLUTICASONE PROPIONATE NA SPR 16 GM BTL NAE SCH (09:23)
[2022-12-11] MEDS: lamoTRIgine 100 MG TAB PO SCH ×2 (09:24→20:11)
[2022-12-11] MEDS ORDERED: ERGOCALCIFEROL 50,000 UNITS 1250 MCG CAP PO STA (10:49)
[2022-12-11] MEDS: CHOLECALCIFEROL 1,000 UNITS 25 MCG TAB PO SCH (11:48)
[2022-12-11] MEDS: KETOROLAC TROMETHAMINE 15 MG/ML VIAL IV PRN ×2 (13:03→19:41)
--- NOTE | 2022-12-11 18:29 | Anesthesiology Consultation ---
Date of Service December 11, 2022 Assessment & Plan (1) Encounter for pre-operative examination: Chart Review Chart Review: data entry manager initiated History Surgery Operation Date: 12/12/22 09:50 Proposed Procedures p Left Hemiarthroplasty versus - Max Alvarado DO s Total Hip Arthroplasty - Max Alvarado DO Height/Weight Height: 5 ft 6 in Weight: 58.2 kg Allergies Allergy/AdvReac Type Severity Reaction Status Date / Time alprazolam [From Xanax] Allergy Cramping Verified 12/10/22 15:34 of the Muscles aripiprazole [From Abilify] Allergy Cramping Verified 12/10/22 15:34 of the Muscles lisinopril Allergy Cramping Verified 12/10/22 15:34 of the Muscles Medications Home Medications Medication Instructions Recorded Confirmed Last Taken alendronate 70 mg tablet 70 mg PO WK 12/10/22 12/10/22 Unknown amlodipine 10 mg tablet 10 mg PO DAILY 12/10/22 12/10/22 Unknown baclofen 10 mg tablet 10 mg PO BID 12/10/22 12/10/22 Unknown calcium citrate 315 mg-vitamin D3 2 tab PO DAILY 12/10/22 12/10/22 Unknown 5 mcg (200 unit) tablet (Calcium Citrate + D) cyclobenzaprine 10 mg tablet 10 mg PO BID PRN Muscle Spasm 12/10/22 12/10/22 Unknown dalfampridine 10 mg 10 mg PO Q12H 12/10/22 12/10/22 Unknown tablet,extended release,12 hr docusate sodium 100 mg capsule 100 mg PO DAILY 12/10/22 12/10/22 Unknown fluticasone propionate 50 2 spray intranasal DAILY 12/10/22 12/10/22 Unknown mcg/actuation nasal spray,suspension (Flonase Allergy Relief) gabapentin 400 mg capsule 400 mg PO TID 12/10/22 12/10/22 Unknown lamotrigine 200 mg tablet 200 mg PO BID 12/10/22 12/10/22 Unknown (Lamictal) oxybutynin chloride 5 mg 5 mg PO HS 12/10/22 12/10/22 Unknown tablet,extended release 24 hr pantoprazole 40 mg tablet,delayed 40 mg PO DAILY 12/10/22 12/10/22 Unknown release potassium chloride 20 mEq 10 meq PO DAILY 12/10/22 12/10/22 Unknown tablet,extended release rosuvastatin 20 mg tablet 10 mg PO HS 12/10/22 12/10/22 Unknown venlafaxine 150 mg 150 mg PO BID 12/10/22 12/10/22 Unknown capsule,extended release 24 hr ziprasidone HCl 20 mg capsule 20 mg PO DAILY 12/10/22 12/10/22 Unknown Active Medications Generic Name Dose Route Start Last Admin Trade Name Freq PRN Reason Stop Dose Admin Acetaminophen 650 mg 12/10/22 16:55 12/11/22 00:54 Acetaminophen 325 Mg Tab PO 01/09/23 16:54 650 mg Q4H PRN Administration pain/fever Amlodipine Besylate 10 mg 12/11/22 09:00 12/11/22 09:21 Amlodipine Besylate 5 Mg Tab PO 01/10/23 08:59 10 mg DAILY WIL Administration Baclofen 10 mg 12/10/22 21:00 12/11/22 09:22 Baclofen 10 Mg Tab PO 01/09/23 20:59 10 mg BID WIL Administration Calcium/Vitamin D 2 tab 12/11/22 09:00 12/11/22 09:21 Calcium 600mg + Vit D 400 Iu Tab PO 01/10/23 08:59 2 tab DAILY WIL Administration Cyclobenzaprine HCl 10 mg 12/10/22 17:04 12/11/22 00:54 Cyclobenzaprine Hcl 10 Mg Tab PO 01/09/23 17:03 10 mg BID PRN Administration Muscle Spasm Docusate Sodium 100 mg 12/11/22 09:00 12/11/22 09:22 Docusate Sodium 100 Mg Cap PO 01/10/23 08:59 100 mg DAILY WIL Administration Fluticasone Propionate 2 sprays 12/11/22 09:00 12/11/22 09:23 Fluticasone Propionate Na Spr 16 Gm Btl OZZY 01/10/23 08:59 2 sprays DAILY WIL Administration Gabapentin 400 mg 12/10/22 21:00 12/11/22 14:35 Gabapentin 400 Mg Cap PO 01/09/23 20:59 400 mg TID WIL Administration Ketorolac Tromethamine 15 mg 12/10/22 16:55 12/11/22 13:03 Ketorolac Tromethamine 15 Mg/Ml Vial IV 12/15/22 16:54 15 mg Q6H PRN Administration Pain & Pre PT Lamotrigine 200 mg 12/10/22 21:00 12/11/22 09:24 Lamotrigine 100 Mg Tab PO 01/09/23 20:59 200 mg BID WIL Administration Miscellaneous 1 each 12/11/22 00:00 12/11/22 16:11 Dalfampridine 10 Mg - Order Awaiting Action N/A 01/10/23 00:00 Not Given QS WIL Oxybutynin Chloride 5 mg 12/10/22 21:00 12/10/22 22:29 Oxybutynin Chloride Xl 5 Mg Tabcr PO 01/09/23 20:59 5 mg HS WIL Administration Pantoprazole Sodium 40 mg 12/11/22 09:00 12/11/22 09:20 Pantoprazole 40 Mg Tab PO 01/10/23 08:59 40 mg DAILY WIL Administration Potassium Chloride 10 meq 12/11/22 09:00 12/11/22 09:21 Potassium Chloride 10 Meq Tabcr PO 01/10/23 08:59 10 meq DAILY WIL Administration Rosuvastatin Calcium 10 mg 12/10/22 21:00 12/10/22 22:27 Rosuvastatin Calcium 10 Mg Tab PO 01/09/23 20:59 10 mg HS WIL Administration Senna/Docusate Sodium 2 tab 12/10/22 21:00 12/10/22 22:28 Docusate Sodium/Senna 50/8.6mg Tab PO 01/09/23 20:59 2 tab HS WIL Administration Venlafaxine HCl 150 mg 12/10/22 21:00 12/11/22 09:22 Venlafaxine Hcl Xr 150 Mg Capxr PO 01/09/23 20:59 150 mg BID WIL Administration Vitamin D 2,000 units 12/11/22 11:00 12/11/22 11:48 Cholecalciferol 1,000 Units 25 Mcg Tab PO 01/10/23 10:59 2,000 units QAM WIL Administration Ziprasidone 20 mg 12/11/22 09:00 12/11/22 09:21 Ziprasidone Hcl 20 Mg Cap PO 01/10/23 08:59 20 mg DAILY WIL Administration Social History Smoking Status: Current every day smoker tobacco type: cigarettes Do You Dip or Chew Tobacco: No Hx Alcohol Use: No Hx Substance Use: No substance use type: does not use Physical Exam Vital Signs Last Vital Signs Temp 98.2 F 12/11/22 14:24 Pulse 89 12/11/22 14:24 Resp 16 12/11/22 14:24 BP 138/81 12/11/22 14:24 Pulse Ox 94 12/11/22 14:24 O2 Del Method 12/11/22 14:24 Testing Laboratory Results 12/10/22 14:47 12/10/22 14:47 PT 9.8 Seconds (9.0-12.0) 12/10/22 16:57 INR 0.9 (0.9-1.1) 12/10/22 16:57 APTT 26.4 Seconds (21.0-31.0) 12/10/22 16:57 Urine Color Yellow 12/10/22 15:48 Urine Appearance Clear (Clear) 12/10/22 15:48 Urine pH 6.5 (4.5-7.5) 12/10/22 15:48 Ur Specific [place] 1.011 (1.000-1.030) 12/10/22 15:48 Urine Protein Negative (Negative) 12/10/22 15:48 Urine Glucose (UA) Negative (Negative) 12/10/22 15:48 Urine Ketones Trace (Negative) H 12/10/22 15:48 Urine Nitrite Negative (Negative) 12/10/22 15:48 Ur Leukocyte Esterase Negative (Negative) 12/10/22 15:48 Blood Type O Positive 12/10/22 17:16 Antibody Screen NEGATIVE 12/10/22 17:16 Electrocardiogram Date: 12/10/22 Findings: + NSR @ (62 bpm) Chest X-Ray Date: 12/10/22 IMPRESSION: 1. No definite acute cardiopulmonary findings. 2. Mild asymmetric right lower lung interstitial thickening. This may be chronic.
--- NOTE | 2022-12-11 19:04 | Billing Data ---
Date of Service December 11, 2022 Coding Level of Care Code 52627 SUB INP/OBS CARE MIN
[2022-12-11] MEDS: OXYBUTYNIN CHLORIDE XL 5 MG TABCR PO SCH (20:10)
[2022-12-11] MEDS: ROSUVASTATIN CALCIUM 10 MG TAB PO SCH (20:12)
[2022-12-11] MEDS: DOCUSATE SODIUM/SENNA 50/8.6MG TAB PO SCH (20:13)
--- NOTE | 2022-12-11 23:58 | Consultation Report ---
DATE OF CONSULTATION: 12/11/2022. PERTINENT HISTORY: This is a 67-year-old female seen at the request of Dr. Roy after the patient sustained a ground level fall, landing on her left lower extremity, sustaining a displaced left femo ral neck fracture. The patient was transported to [facility] where she was evaluat ed and noted to have a femoral neck fracture with displacement. She was admitted to the hospitalist service, currently optimized for surgery and scheduled for surgical fixation in the operating room. The patient had no head or neck trauma. No other associated complaints. The patient had no prodroma l symptoms of left hip pain prior to her fall. The patient states that she has difficulty with amairani ce due to having multiple sclerosis. PAST MEDICAL HISTORY: Hypertension, multiple sclerosis, dyslipidemia, depression, PTSD, osteopenia, osteoporosis, thyroid goiter. PAST SURGICAL HISTORY: Noncontributory. ALLERGIES: ALPRAZOLAM, CRAMPING; ABILIFY, CRAMPING OF THE MUSCLES; LISINOPRIL, CRAMPING OF THE MUSCL ES. MEDICATIONS: Please note the extensive list in the medical record. Of note, the patient is not on a ny chronic anticoagulation therapy. SOCIAL HISTORY: The patient smokes cigarettes daily. Denies alcohol or drug use. She is retired. PHYSICAL EXAMINATION: GENERAL: She is a pleasant 67-year-old female, lying in her hospital bed, awake and alert. PSYCHIATRIC: A and O x3. Speech is clear and fluent. Affect is appropriate. EYES: She wears glasses. EXTREMITIES: Focused examination of the lower extremities demonstrates a shortened and slightly rota eugenia left lower extremity. Positive log roll test. Positive heel strike on the left. Pedal pulses a re palpable. Feet are warm. Sensation is intact, bilateral lower extremities. She has limited rang e of motion of the left hip due to pain and guarding. IMAGING: Radiographs of the left hip demonstrate a displaced femoral neck fracture without any evide nce of ongoing osteoarthritis, left hip. Osteopenia is noted. IMPRESSION: Left displaced femoral neck fracture, osteopenia, ground level fall. RECOMMENDATION: Left hip hemiarthroplasty, possible total hip replacement, left. The patient will be NPO after midnight. Written consent was obtained. Anesthesia aware for preoperative consultation. Thank you for the opportunity to consult in the care of this patient. Job ID: [id number]
[2022-12-12] MEDS: ACETAMINOPHEN 325 MG TAB PO PRN (03:25)
[2022-12-12] MEDS ORDERED: BUPIVACAINE 0.5 % 5 MG/1 ML PF 10ML VIAL ONE (06:35)
--- NOTE | 2022-12-12 06:50 | Hospitalist Progress Note ---
Date of Service December 12, 2022 Assessment & Plan (1) Fracture of femoral neck, left: (2) Hypertension: (3) Dyslipidemia: (4) Bipolar disorder: (5) PTSD (post-traumatic stress disorder): (6) Multiple sclerosis: (7) Cigarette smoker: Plan Riacrda is a 67 F with history of MS, PTSD, bipolar disorder, dyslipidemia, HTN, and tobacco use (cigarette smoking) who presented for evaluation after a ground- level fall and was admitted for surgical management of a left femoral neck fracture. Left Femoral Neck Fracture - Known history of osteopenia/osteoporosis, receives care at [facility] (records requested) - Patient has been on Alendronate 70 mg PO weekly for 3 months - She takes calcium + vitamin D supplements at home, inpatient Vit D supplements ordered - XR showing L femoral neck fracture - Orthopedics consulted --- Surgery scheduled today, patient NPO --- Pain controlled with current regimen --- Counseled patient on the importance of smoking cessation in the setting of osteopenia/osteoporosis Chronic Conditions: HTN - continue home Amlodipine 10 mg Dyslipidemia - continue home Rosuvastatin PTSD/Bipolar - continue home medications MS - no prior flares or steroid requirement, continue home regimen FEN: Heart Healthy, NPO @ midnight Code status: Full Code DVT ppx: SCD Isolation: None Dispo:Med/Surg Admission and Anticipated Discharge Date Admission Date: December 10, 2022 Supervising Physician Co-Signing Physician Notes I personally examined the patient and verified all vaz points of history and exam, discussed case, and agree with decision making with Dr Yañez pain controlled post op doing well no new complaints vitals noted nad heent nc at mmm breathing unlabored no accessory muscles good effort skin no rashes no pallor or icterus presumed osteoporotic hip fracture - post op. pain controlled. outpt bone health management. smoke cessation. PT/OT eval and treat. Subjective 2/3: Patient resting comfortably, pain is 8/10 and controlled with medication, she is anticipating her surgery this morning. Patient denies any chest pain, dyspnea, pleuritic pain, abdominal discomfort or bowel/bladder changes. She is looking forward to physical therapy to regain her strength. Review of Systems Review of Systems: As per HPI Physical Exam Physical Exam: Gen: NAD, alert, interactive Resp:Non-labored, no wheezing/rhonchi/rales, CTAB CV:RRR, normal S1/S2, no M/R/G Abd: Soft, non-distended, no TTP, normoactive bowels, no masses Extr: 2+ dp bilaterally, no edema, LLE externally rotated, TTP of hip, no ecchymosis or erythema Skin: No rashes lesions or erythema Results & Data Results & Data ([facility]) Vital Signs (Past 12 Hours) Vital Signs Temp Pulse Resp BP BP Pulse Ox O2 Del Method 12/12/22 03:00 36.8 C 80 16 127/75 91 Room Air 12/11/22 22:13 37.2 C 80 16 131/78 93 Room Air 12/11/22 19:53 36.9 C 75 18 141/81 H 93 Room Air 12/11/22 19:59 Room Air Resident Activity Tracking Resident Involvement: Resident Care Provided Care Provided: Adult Hospital Medicine
[2022-12-12 08:28] LABS: Hematocrit (blood only) 38.5 % (37.0-47.0); Hemoglobin 13.2 g/dl (12.0-16.0); Mean Corpuscular Hemoglobin 31.2 pg (25.0-34.0); Mean Corpuscular Hgb Conc 34.3 g/dL (32.0-36.0); Mean Platelet Volume 9.6 fL (9.4-12.4); Platelet Count 211 K/uL (130-400); RDW Standard Deviation 47.2 fL (36.4-46.3); Red Blood Count 4.23 M/uL (4.20-5.40); White Blood Count 7.42 K/ul (4.8-10.8)
[2022-12-12] MEDS ORDERED: MIDAZOLAM HCL 1 MG/ML 2ML VIAL ONE (08:49)
[2022-12-12] MEDS ORDERED: fentaNYL citrate 100 MCG/2 ML VIAL ONE ×2 (08:50→11:19)
[2022-12-12 09:16] LABS: BUN Creatinine Ratio 13.7 (10-20); Creatinine Clr Calc Pharmacy 39.9 ml/min; Est GFR (African American) 51.7 ml/min; Est GFR (Non-African American) 44.6 ml/min; Potassium 4.2 mmol/L (3.5-5.1)
[2022-12-12] MEDS: BACLOFEN 10 MG TAB PO SCH ×2 (09:45→20:59)
[2022-12-12] MEDS: VENLAFAXINE HCL XR 150 MG CAPXR PO SCH ×2 (09:45→21:01)
[2022-12-12] MEDS: PANTOprazole 40 MG TAB PO SCH (09:45)
[2022-12-12] MEDS: lamoTRIgine 100 MG TAB PO SCH ×2 (09:45→21:02)
[2022-12-12] MEDS: amLODIPine BESYLATE 5 MG TAB PO SCH (09:46)
[2022-12-12] MEDS: POTASSIUM CHLORIDE 10 MEQ TABCR PO SCH (09:46)
[2022-12-12] MEDS: CALCIUM 600MG + VIT D 400 IU TAB PO SCH (09:47)
[2022-12-12] MEDS: CHOLECALCIFEROL 1,000 UNITS 25 MCG TAB PO SCH (09:48)
[2022-12-12] MEDS: GABAPENTIN 400 MG CAP PO SCH ×3 (09:48→21:01)
[2022-12-12] MEDS: DOCUSATE SODIUM 100 MG CAP PO SCH (09:48)
[2022-12-12] MEDS: FLUTICASONE PROPIONATE NA SPR 16 GM BTL NAE SCH (09:49)
[2022-12-12] MEDS ORDERED: ORTHO JOINT ANESTHETIC ONE ×2 (10:03→10:29)
[2022-12-12] MEDS ORDERED: ATROPINE SULFATE 0.1 MG/ML 10ML SYR IV PRN (10:32)
[2022-12-12] MEDS ORDERED: fentaNYL citrate 100 MCG/2 ML VIAL IV PRN (10:32)
[2022-12-12] MEDS ORDERED: ePHEDrine sulfate 50 MG/ML AMP IV PRN (10:32)
[2022-12-12] MEDS ORDERED: HYDROmorphone INJ 2 MG/ML SYR/VIAL IV PRN (10:32)
--- NOTE | 2022-12-12 10:36 | History & Physical Bridge Note ---
Date of Service December 12, 2022 History & Physical Bridge Note I have examined the patient, reviewed the History & Physical and in the interval since the performance of the History & Physical I have noted the following changes of clinical significance: no changes noted
[2022-12-12] MEDS ORDERED: ceFAZolin 2,000 MG/15 ML IV PUSH IV ONE (10:37)
[2022-12-12] MEDS ORDERED: ROPIVACAINE 0.5% HCL/PF 150 MG, BUPIVACAINE 0.75% MPF 20 ML, EPINEPHrine 0.15 MG, Ketor... INFIL STA (10:43)
[2022-12-12] MEDS ORDERED: PROPOFOL IV EMULSION 10 MG/ML 20 ML VIAL IV ONE (11:19)
[2022-12-12] MEDS ORDERED: ROCURONIUM BROMIDE 10 MG/ML 5 ML VIAL IV ONE (11:47)
[2022-12-12] MEDS ORDERED: LABETALOL HCL IV 5 MG/ML 20ML IV ONE (13:36)
--- NOTE | 2022-12-12 14:14 | Anesthesiology Progress Note ---
Date of Service December 12, 2022 Anesthesia Post Procedure Vital Signs Vital Signs: Temp Pulse Pulse Resp BP BP Pulse Ox 12/12/22 13:49 36.5 C 76 16 166/88 H 99 12/12/22 09:48 12/12/22 10:16 36.7 C 79 20 138/80 92 12/12/22 07:58 36.6 C 77 18 151/83 H 93 12/12/22 03:00 36.8 C 80 16 127/75 91 12/11/22 22:13 37.2 C 80 16 131/78 93 12/11/22 19:53 36.9 C 75 18 141/81 H 93 12/11/22 19:59 12/11/22 14:24 36.8 C 89 16 138/81 94 O2 Del Method O2 Flow Rate 12/12/22 13:49 Nasal Cannula 2 12/12/22 09:48 Room Air 12/12/22 10:16 Room Air 12/12/22 07:58 Room Air 12/12/22 03:00 Room Air 12/11/22 22:13 Room Air 12/11/22 19:53 Room Air 12/11/22 19:59 Room Air 12/11/22 14:24 Room Air Pain Intensity Left Hip: Pain Intensity: 0 Transfer of Care Handoff Completed per policy Notes Mental Status: alert / awake / arousable and participated in evaluation Patient Amnestic to Procedure: Yes Nausea / Vomiting: adequately controlled Pain: adequately controlled Airway Patency, RR, SpO2: stable & adequate BP & HR: stable & adequate Hydration State: stable & adequate Anesthetic Complications: no major complications apparent and Pt Satisfied with anesthetic care
--- NOTE | 2022-12-12 14:40 | Post Operative Brief Note ---
Immediate Post Op Note v1 Date of Surgery December 12, 2022 Pre & Post Diagnosis Operation Date: 12/12/22 09:50 Pre-Op Diagnosis: Left displaced femoral neck Fracture Post-Op Diagnosis: Left displaced femoral neck Fracture I identified the patient and participated in the time-out.: Yes Procedure Operation Date: 12/12/22 09:50 Actual Procedures p Left Hip Hemiarthroplasty with Jesus Accolade 2 V40 size 4 femoral component 26 mm head with a +0 mm, UHR bipolar head 44 mm outer diameter. (Left) - Br zina Alvarado DO Surgeon Max Alvarado DO Network Systems Integrator None Estimated Blood Loss 40 Findings Consistent with Post-Op Diagnosis Specimens Bone and tissue left hip Drains Ramirez Catheter (Patent upon arrival & departure.) and Hemovac Drain Anesthesia Type General Regional Complications none Disposition Accompanied Patient To Recovery: No
--- NOTE | 2022-12-12 14:53 | XRay Report ---
LEFT HIP 2 VIEWS CLINICAL HISTORY: Postoperative examination. FINDINGS: AP and crosstable lateral views of the left hip are compared to study dated 12/10/2022. The s keletal structures are osteopenic. A left hip arthroplasty is in near anatomic alignment. No acute fr acture is seen. Skin clips, a surgical drain, soft tissue swelling, and subcutaneous gas overlying th e left hip are expected postoperative changes. A Ramirez catheter is in place. IMPRESSION: Expected postoperative findings status post left hip arthroplasty. No acute fracture is s een. Electronically signed by: Zenon Restrepo M.D. 12/12/2022 2:51 PM
[2022-12-12] MEDS: KETOROLAC TROMETHAMINE 15 MG/ML VIAL IV SCH ×2 (16:35→21:03)
[2022-12-12] MEDS: SODIUM CHLORIDE 0.9% 1000ML 1,000 ML IV SCH (16:36)
[2022-12-12] MEDS: ASCORBIC ACID 500 MG TAB PO SCH (16:54)
--- NOTE | 2022-12-12 17:07 | Billing Data ---
Date of Service December 12, 2022 Coding Level of Care Code 12189 SUB INP/OBS CARE
[2022-12-12] MEDS: DOCUSATE SODIUM/SENNA 50/8.6MG TAB PO SCH (20:59)
[2022-12-12] MEDS: ROSUVASTATIN CALCIUM 10 MG TAB PO SCH (21:00)
[2022-12-12] MEDS: OXYBUTYNIN CHLORIDE XL 5 MG TABCR PO SCH (21:02)
[2022-12-12] MEDS: ceFAZolin 1000MG 1,000 MG/7.5 ML SYR IV SCH (21:03)
--- NOTE | 2022-12-12 23:04 | Operative Report (OR) ---
DATE OF PROCEDURE: 12/12/2022. PREOPERATIVE DIAGNOSES: Left displaced femoral neck fracture. POSTOPERATIVE DIAGNOSIS: Left displaced femoral neck fracture. PROCEDURE: Left hip hemiarthroplasty using a Argyle Accolade II size 4 femoral implant with a Jesus LFIT V40 femoral head, 26 mm x +0 mm and a UHR [place] head bipolar component, 44 mm outer diameter, 26 mm inner diameter. SURGEON: Max Alvarado DO. OVERHEAD WORKER: None. ANESTHESIA: General with regional. SPECIMENS: Bone and tissue, left hip. DRAINS: Hemovac x2. COMPLICATIONS: None. BLOOD LOSS: 40 mL. PERTINENT HISTORY: This is a 67-year-old female who suffers from multiple sclerosis, had a ground level fall and sustained a left displaced femoral neck fracture. The patient presented to [facility]. She was admitted to the hospitalist service. Radiographs were obtained. Orthopedic consultation was performed and the patient was then scheduled for surgery as indicated. All potential risks, benefits, complications, alternatives, rehab potential for incomplete relief of symptoms, need for further surgery, DVT, PE, , persistent pain, swelling, scarring, weakness, neurovascular injury, wound complications, hardware failure, nonunion, malunion, bone fracture were discussed with the patient. The patient decided to proceed with the procedure as indicated. DESCRIPTION OF PROCEDURE: The patient was taken to the operative suite and placed supine on the Operating Room table. After review of the consent, identification of proper operative site, the patient was anesthetized and endotracheal tube was placed. The patient was then placed in a right lateral decubitus position with the affected side up. Stulberg positioning pads were placed on the OR table. All bony prominences were properly padded and protected including use of an axillary roll. After the left hip was then sterilely prepped and draped in usual fashion, a 10 blade scalpel incision was made centered over the anterior one third of the greater trochanter. The incision was deepened to subcutaneous tissue. Meticulous hemostasis with electrocautery. Full thickness skin flaps were developed. Care was taken to cauterize any small punctate bleeders with a Bovie. Next, the iliotibial band was then incised along the skin incision, retracted both anteriorly and posteriorly using a Charnley retractor over moistened surgical towels. Next, abductor split was made over the neck and head of the femur down to the level of the trochanter with electrocautery and then this plane of dissection was carried around the greater trochanter and then down the lateral shaft of the femur via the vastus lateralis. All soft tissues were then sharply elevated with electrocautery anteriorly including the gluteus medius, the gluteus minimus, the anterior joint capsule and then the vastus lateralis. The fractured femoral neck was clearly identified and then a sagittal saw was used to resect the proximal neck cut without any difficulty approximately one fingerbreadth proximal to the lesser trochanter. Next, the femoral head was extracted from the acetabulum and measured to be approximately 44 mm in diameter. A 44 mm trial was placed with appropriate retractors around the acetabulum, noted to have excellent fit and stability. Then box osteotome and trial reamer placed in the proximal femur followed by sequential upbroaching until a size 4 was firmly placed. Next, the calcar reamer was utilized to smooth the proximal femur followed by placement of a +0 mm neck, standard neck angle and a 44 mm outer diameter trial. This was reduced and noted to have excellent stability and range of motion. Leg lengths were reapproximated to neutral and then all trial implants were then removed. Pulsatile lavage with 3 liters of the solution was used to lavaged the femur, acetabulum and then all soft tissues. Next, final implant of a Argyle Accolade II size 4 femoral implant with a Jesus LFIT V40 femoral head, 26 mm x +0 mm and a UHR [place] head bipolar component, 44 mm outer diameter, 26 mm inner diameter was then placed. The acetabulum was then suctioned, reduced. Excellent range of motion and recreation of leg length was achieved. Shuck test was nearly perfect. The leg lengths were restored. Excellent stability. Next, pulsatile lavage was used to cleanse the deep capsule and all soft tissues. Next a #5 FiberWire was placed through the greater trochanter and sutured through the anterior capsule, gluteus minimus and then into the gluteus medius and then sutured back to the greater trochanter with two deep Hemovac drains placed. Suture was then tied and cut followed by two [id number] sutures of #5 FiberWire in the proximal capsule. A lavage was performed with dilute Betadine for approximately 3 minutes. This was then irrigated and suctioned dry. Ortho mix was injected around the joint capsule taking care to avoid injection around the sciatic nerve. Next, the vastus lateralis was then closed using interrupted #1 Vicryl. The gluteus aden was closed using #1 Vicryl. The iliotibial band was closed using #1 Vicryl. The wound was copiously irrigated with pulsatile lavage and then the dermis was closed using buried interrupted 2-0 Vicryl. Skin was closed using skin olga. A sterile compressive dressing was applied overwrapped with foam tape. The patient was then awakened and taken to recovery in stable condition with an abductor pillow. Job ID: [id number] [facility]
[2022-12-13] MEDS: SODIUM CHLORIDE 0.9% 1000ML 1,000 ML IV SCH (00:41)
[2022-12-13] MEDS: KETOROLAC TROMETHAMINE 15 MG/ML VIAL IV SCH ×2 (02:01→08:37)
[2022-12-13] MEDS: CYCLOBENZAPRINE HCL 10 MG TAB PO PRN (04:15)
[2022-12-13] MEDS: ceFAZolin 1000MG 1,000 MG/7.5 ML SYR IV SCH (04:15)
[2022-12-13] MEDS: ACETAMINOPHEN 325 MG TAB PO PRN ×2 (06:14→14:04)
--- NOTE | 2022-12-13 07:25 | Hospitalist Progress Note ---
Date of Service December 13, 2022 Assessment & Plan (1) Fracture of femoral neck, left: (2) Hypertension: (3) Dyslipidemia: (4) Bipolar disorder: (5) PTSD (post-traumatic stress disorder): (6) Multiple sclerosis: (7) Cigarette smoker: Plan Ricarda is a 67 F with history of MS, PTSD, bipolar disorder, dyslipidemia, HTN, and tobacco use (cigarette smoking) who presented for evaluation after a ground- level fall and was admitted for surgical management of a left femoral neck fracture. Left Femoral Neck Fracture - Known history of osteopenia/osteoporosis, receives care at [facility] (records requested) - Patient has been on Alendronate 70 mg PO weekly for 3 months - She takes calcium + vitamin D supplements at home, inpatient Vit D supplements ordered - XR showing L femoral neck fracture - Orthopedics consulted, surgery on 12/12. Pain controlled with current regimen. - Counseled patient on the importance of smoking cessation in the setting of osteopenia/osteoporosis - PT/OT recommends inpatient rehab. Is meeting with case management on 12/13 to discuss placement at this time. Chronic Conditions: HTN - continue home Amlodipine 10 mg Dyslipidemia - continue home Rosuvastatin PTSD/Bipolar - continue home medications MS - no prior flares or steroid requirement, continue home regimen FEN: Heart Healthy Code status: Full Code DVT ppx: SCD Isolation: None Dispo:Med/Surg Admission and Anticipated Discharge Date Admission Date: December 10, 2022 Supervising Physician Co-Signing Physician Notes I personally examined the patient and verified all vaz points of history and exam, discussed case, and agree with decision making with Dr Evans did well w PT. pain reasonably well controlled. vitals noted nad heent nc at mmm breathing unlabored no accessory muscles good effort skin no rashes no pallor or icterus presumed osteoporotic hip fracture - post op. pain controlled overall. outpt bone health management. smoke cessation. PT/OT eval and treat. anticipate rehab once bed available. Subjective Patient was seen bedside this morning. She has no complaints or issues at this time. States that her pain is well controlled since surgery. States that she has some muscle twitching in her left lower limb that went away overnight. She states she is ready to get up and moving. Review of Systems Review of Systems: All systems reviewed & are unremarkable except as noted in HPI & below Physical Exam Physical Exam: Constitutional: well-appearing, no acute distress HEENT: NCAT, no conjunctival injection CV: regular rhythm, no murmur appreciated, extremities well-perfused, no LE edema Resp: CTABL, no wheezes/rales/rhonchi appreciated, no increased work of breathing GI: soft, nondistended, nontender, BS normoactive MSK: Well-healing post left hip hemiarthroplasty Skin: warm, dry, no rash appreciated Neuro: alert, oriented, no focal neurologic deficit appreciated Results & Data Results & Data ([facility]) Vital Signs (Past 12 Hours) Vital Signs Temp Pulse Resp BP Pulse Ox O2 Del Method 12/13/22 02:00 36.5 C 74 17 117/63 96 Room Air 12/12/22 22:18 36.5 C 73 17 104/65 96 Room Air Resident Activity Tracking Resident Involvement: Resident Care Provided Care Provided: Adult Hospital Medicine
[2022-12-13 08:37] LABS: Hemoglobin 10.2 g/dl (12.0-16.0); Mean Corpuscular Hemoglobin 31.5 pg (25.0-34.0); Mean Corpuscular Volume 92.6 fL (80.0-100.0); Mean Platelet Volume 9.8 fL (9.4-12.4); Platelet Count 191 K/uL (130-400); RDW Coefficient of Variation 13.9 % (11.5-14.5); RDW Standard Deviation 47.4 fL (36.4-46.3); Red Blood Count 3.24 M/uL (4.20-5.40); White Blood Count 8.47 K/ul (4.8-10.8)
[2022-12-13] MEDS: GABAPENTIN 400 MG CAP PO SCH ×3 (08:37→20:06)
[2022-12-13] MEDS: BACLOFEN 10 MG TAB PO SCH ×2 (08:37→20:09)
[2022-12-13] MEDS: VENLAFAXINE HCL XR 150 MG CAPXR PO SCH ×2 (08:37→20:08)
[2022-12-13] MEDS: lamoTRIgine 100 MG TAB PO SCH ×2 (08:37→20:09)
[2022-12-13] MEDS: amLODIPine BESYLATE 5 MG TAB PO SCH (08:37)
[2022-12-13] MEDS: PANTOprazole 40 MG TAB PO SCH (08:38)
[2022-12-13] MEDS: DOCUSATE SODIUM 100 MG CAP PO SCH (08:38)
[2022-12-13] MEDS: CALCIUM 600MG + VIT D 400 IU TAB PO SCH (08:38)
[2022-12-13] MEDS: MULTIVITAMIN TAB PO SCH (08:38)
[2022-12-13] MEDS: ASCORBIC ACID 500 MG TAB PO SCH ×2 (08:38→17:44)
[2022-12-13] MEDS: POTASSIUM CHLORIDE 10 MEQ TABCR PO SCH (08:38)
[2022-12-13] MEDS: CHOLECALCIFEROL 1,000 UNITS 25 MCG TAB PO SCH (08:38)
[2022-12-13] MEDS: FLUTICASONE PROPIONATE NA SPR 16 GM BTL NAE SCH (08:41)
[2022-12-13 08:55] LABS: BUN Creatinine Ratio 12.9 (10-20); Calcium 9.1 mg/dl (8.5-10.1); Creatinine Clr Calc Pharmacy 39.9 ml/min; Est GFR (African American) 51.7 ml/min; Est GFR (Non-African American) 44.6 ml/min; Potassium 4.1 mmol/L (3.5-5.1)
--- NOTE | 2022-12-13 14:48 | Orthopedic Progress Note ---
Date of Service December 13, 2022 Assessment & Plan (1) Closed left hip fracture: Plan: Patient postop day #1 after left hip hemiarthroplasty. Continue physical therapy and Occupational Therapy. VTE prophylaxis 81 mg aspirin twice daily. Teds and SCDs bilateral. Continue postop hip precautions. Appreciate input from medical team and social service team. Discontinue drain in the a.m. (2) Fracture of femoral neck, left: Admission and Anticipated Discharge Date Admission Date: December 10, 2022 Subjective Patient was seen bedside this morning. She ambulated with physical therapy to the double doors with her walker approximately 100 feet roundtrip. States that her pain is well controlled since surgery. States that she has some muscle t witching in her left lower limb intermittently. Physical Exam Physical Exam: Examination left hip demonstrates dry dressing and drain in place. Minimal tenderness at the incision site left hip. Leg lengths have been reapproximated to preoperative leg length as explained by the patient. Abductor pillow in place. Extremity skin is warm, dry and intact. Pedal pulses palpable. Feet are warm. No evidence of foot drop with equal dorsiflexion 5 out of 5 bilateral lower extremities. Negative logroll negative heel strike on the left. No pain with flexion internal rotation or external rotation of the hip in a slightly abducted position. Results & Data ([facility]) Vital Signs (Past 12 Hours) Vital Signs Temp Pulse Resp BP Pulse Ox O2 Del Method 12/13/22 11:39 36.7 C 85 16 108/63 95 Room Air 12/13/22 07:38 36.6 C 74 16 131/72 94 Room Air Laboratory Results Laboratories reviewed with mild postop anemia.
[2022-12-13] MEDS: KETOROLAC TROMETHAMINE 15 MG/ML VIAL IV PRN ×2 (15:16→21:53)
--- NOTE | 2022-12-13 17:29 | Billing Data ---
Date of Service December 13, 2022 Coding Level of Care Code 30755 SUB INP/OBS CARE
[2022-12-13] MEDS: ROSUVASTATIN CALCIUM 10 MG TAB PO SCH (20:07)
[2022-12-13] MEDS: OXYBUTYNIN CHLORIDE XL 5 MG TABCR PO SCH (20:07)
[2022-12-13] MEDS: DOCUSATE SODIUM/SENNA 50/8.6MG TAB PO SCH (20:08)
[2022-12-13] MEDS: ASPIRIN 81 MG ECTAB PO SCH (20:46)
[2022-12-14] MEDS: KETOROLAC TROMETHAMINE 15 MG/ML VIAL IV PRN ×3 (04:02→23:15)
--- NOTE | 2022-12-14 06:55 | Hospitalist Progress Note ---
Date of Service December 14, 2022 Assessment & Plan (1) Fracture of femoral neck, left: (2) Hypertension: (3) Dyslipidemia: (4) Bipolar disorder: (5) PTSD (post-traumatic stress disorder): (6) Multiple sclerosis: (7) Cigarette smoker: Plan Ricarda is a 67 F with history of MS, PTSD, bipolar disorder, dyslipidemia, HTN, and tobacco use (cigarette smoking) who presented for evaluation after a ground- level fall and was admitted for surgical management of a left femoral neck fracture. Left Femoral Neck Fracture - Known history of osteopenia/osteoporosis, receives care at [facility] (records requested) - Patient has been on Alendronate 70 mg PO weekly for 3 months - She takes calcium + vitamin D supplements at home, inpatient Vit D supplements ordered - XR showing L femoral neck fracture - Orthopedics consulted, surgery on 12/12. Pain controlled with current regimen. - Counseled patient on the importance of smoking cessation in the setting of osteopenia/osteoporosis - PT/OT recommends inpatient rehab. Currently pending placement at this time. We will continue to monitor and treat pain. Chronic Conditions: HTN - continue home Amlodipine 10 mg Dyslipidemia - continue home Rosuvastatin PTSD/Bipolar - continue home medications MS - no prior flares or steroid requirement, continue home regimen FEN: Heart Healthy Code status: Full Code DVT ppx: SCD Isolation: None Dispo:Med/Surg Admission and Anticipated Discharge Date Admission Date: December 10, 2022 Supervising Physician Co-Signing Physician Notes I personally examined the patient and verified all vaz points of history and exam, discussed case, and agree with decision making with Dr Evans working w PT walking in [place]ner w walker pain reasonably well controlled. vitals noted nad heent nc at mmm breathing unlabored no accessory muscles good effort skin no rashes no pallor or icterus presumed osteoporotic hip fracture - post op. pain controlled overall. outpt bone health management. smoke cessation. PT/OT eval and treat ongoing. anticipate rehab once bed available/once she can coordinate w ID Subjective Patient was seen bedside this morning. She has been able to ambulate with physical therapy. She states that her pain is well controlled and states that Toradol is able to cover it. Still having some muscle twitching in the left leg, though it is better than yesterday. Review of Systems Review of Systems: All systems reviewed & are unremarkable except as noted in HPI & below Physical Exam Physical Exam: Constitutional: well-appearing, no acute distress HEENT: NCAT, no conjunctival injection CV: regular rhythm, no murmur appreciated, extremities well-perfused, no LE edema Resp: CTABL, no wheezes/rales/rhonchi appreciated, no increased work of breathing GI: soft, nondistended, nontender, BS normoactive MSK: Well-healing post left hip hemiarthroplasty Skin: warm, dry, no rash appreciated Neuro: alert, oriented, no focal neurologic deficit appreciated Results & Data Results & Data ([facility] [place]) Vital Signs (Past 12 Hours) Vital Signs Temp Pulse Resp BP Pulse Ox O2 Del Method 12/13/22 23:02 36.8 C 81 16 127/68 93 Room Air 12/13/22 19:55 Room Air Resident Activity Tracking Resident Involvement: Resident Care Provided Care Provided: Adult Hospital Medicine
[2022-12-14 07:21] LABS: Hematocrit (blood only) 28.6 % (37.0-47.0); Hemoglobin 9.6 g/dl (12.0-16.0); Mean Corpuscular Hemoglobin 31.2 pg (25.0-34.0); Mean Corpuscular Hgb Conc 33.6 g/dL (32.0-36.0); Mean Corpuscular Volume 92.9 fL (80.0-100.0); Mean Platelet Volume 9.9 fL (9.4-12.4); Platelet Count 202 K/uL (130-400); RDW Coefficient of Variation 13.9 % (11.5-14.5); RDW Standard Deviation 47.7 fL (36.4-46.3); Red Blood Count 3.08 M/uL (4.20-5.40); White Blood Count 7.14 K/ul (4.8-10.8)
[2022-12-14 07:46] LABS: BUN Creatinine Ratio 10.6 (10-20); Calcium 9.3 mg/dl (8.5-10.1); Creatinine Clr Calc Pharmacy 47.6 ml/min; Est GFR (African American) 63.9 ml/min; Est GFR (Non-African American) 55.2 ml/min; Potassium 3.9 mmol/L (3.5-5.1)
[2022-12-14] MEDS: VENLAFAXINE HCL XR 150 MG CAPXR PO SCH ×2 (08:29→21:16)
[2022-12-14] MEDS: lamoTRIgine 100 MG TAB PO SCH ×2 (08:29→21:16)
[2022-12-14] MEDS: GABAPENTIN 400 MG CAP PO SCH ×3 (08:29→21:16)
[2022-12-14] MEDS: CHOLECALCIFEROL 1,000 UNITS 25 MCG TAB PO SCH (08:29)
[2022-12-14] MEDS: ASCORBIC ACID 500 MG TAB PO SCH ×2 (08:30→17:57)
[2022-12-14] MEDS: BACLOFEN 10 MG TAB PO SCH ×2 (08:30→21:16)
[2022-12-14] MEDS: MULTIVITAMIN TAB PO SCH (08:30)
[2022-12-14] MEDS: DOCUSATE SODIUM 100 MG CAP PO SCH (08:30)
[2022-12-14] MEDS: CALCIUM 600MG + VIT D 400 IU TAB PO SCH (08:30)
[2022-12-14] MEDS: POTASSIUM CHLORIDE 10 MEQ TABCR PO SCH (08:30)
[2022-12-14] MEDS: PANTOprazole 40 MG TAB PO SCH (08:30)
[2022-12-14] MEDS: amLODIPine BESYLATE 5 MG TAB PO SCH (08:30)
[2022-12-14] MEDS: FLUTICASONE PROPIONATE NA SPR 16 GM BTL NAE SCH (08:31)
[2022-12-14] MEDS: ASPIRIN 81 MG ECTAB PO SCH ×2 (08:31→21:16)
--- NOTE | 2022-12-14 12:17 | Orthopedic Progress Note ---
Date of Service December 14, 2022 Assessment & Plan (1) Closed left hip fracture: Plan: Patient postop day #2 after left hip hemiarthroplasty. Continue physical therapy and Occupational Therapy. VTE prophylaxis 81 mg aspirin twice daily. Teds and SCDs bilateral. Continue postop hip precautions. Appreciate input from medical team and social service team. (2) Fracture of femoral neck, left: Admission and Anticipated Discharge Date Admission Date: December 10, 2022 Subjective Patient was seen bedside this morning. She ambulated with physical therapy around the entire loop of the 3rd floor with her walker. States that her pain is well controlled since surgery. States that her muscle twitching in her left lower limb has resolved. Physical Exam Physical Exam: Examination left hip demonstrates dry dressing and drain removed. Minimal tenderness at the incision site left hip. Leg lengths have been reapproximated to preoperative leg length as explained by the patient. Abductor pillow in place. Extremity skin is warm, dry and intact. Pedal pulses palpable. Feet are warm. No evidence of foot drop with equal dorsiflexion 5 out of 5 bilateral lower extremities. Negative logroll negative heel strike on the left. No pain with flexion internal rotation or external rotation of the hip in a slightly abducted position. Results & Data ([facility]) Vital Signs (Past 12 Hours) Vital Signs Temp Pulse Resp BP Pulse Ox O2 Del Method 12/14/22 07:25 36.9 C 78 18 112/70 95 Room Air
--- NOTE | 2022-12-14 14:49 | Billing Data ---
Date of Service December 14, 2022 Coding Level of Care Code 13923 SUB INP/OBS CARE
[2022-12-14] MEDS: ACETAMINOPHEN 325 MG TAB PO PRN (15:22)
[2022-12-14] MEDS: DOCUSATE SODIUM/SENNA 50/8.6MG TAB PO SCH (21:16)
[2022-12-14] MEDS: OXYBUTYNIN CHLORIDE XL 5 MG TABCR PO SCH (21:16)
[2022-12-14] MEDS: ROSUVASTATIN CALCIUM 10 MG TAB PO SCH (21:16)
--- NOTE | 2022-12-15 07:37 | Hospitalist Progress Note ---
Date of Service December 15, 2022 Assessment & Plan (1) Fracture of femoral neck, left: (2) Hypertension: (3) Dyslipidemia: (4) Bipolar disorder: (5) PTSD (post-traumatic stress disorder): (6) Multiple sclerosis: (7) Cigarette smoker: Plan Pt is a 67 yo female with PMH of MS, PTSD, bipolar disorder, HLD, and HTN presenting to the ER d/t a fall at her home on her sidewalk. Xray showed she had a left femoral neck fracture. Left Femoral Neck Fracture - known history of osteopenia/osteoporosis, receives care at [facility] (records requested) - pt has been on alendronate 70 mg PO weekly for 3 months - pt takes calcium and vitamin D supplements at home; inpatient Vit D supplements ordered - surgical repair 12/12; pain controlled with current regimen - counseled patient on the importance of smoking cessation in the setting of osteopenia/osteoporosis - PT/OT recommends inpatient rehab - currently pending placement at this time Constipation vs. post op ileus - pt has not had a BM in about a week (since a few days before surgery) - pt endorses no discomfort or complaints concerning her BM at this time - given miralax daily, senna HS - continue to monitor Chronic Conditions: HTN - continue home amlodipine 10 mg Dyslipidemia - continue home Rosuvastatin PTSD/Bipolar - continue home medications MS - no prior flares or steroid requirement, continue home regimen FEN: Heart Healthy Code status: Full Code DVT ppx: SCDs Dispo:Med/Surg Admission and Anticipated Discharge Date Admission Date: December 10, 2022 Subjective Pt is a 67 yo female with PMH of MS, PTSD, bipolar disorder, HLD, and HTN presenting to the ER d/t a fall at her home on her sidewalk. Xray showed she had a left femoral neck fracture. Pt seen at bedside this AM. Pt doing well. Pt would like to talk with case management concerning coordination of her rehab with the [place]. Pt denies any new symptoms of chest pain, SOB, or calf pains. She endorses some left knee pain which is under control. Review of Systems Review of Systems: All systems reviewed & are unremarkable except as noted in HPI & below Physical Exam Constitutional: NAD. Vitals WNL. Eyes: no conjunctival abnormality Respiratory: CTA bilaterally. No rhonchi, wheezing, or crackles. Non labored breathing. Cardiovascular: RRR. No murmur noted. No LL edema. Gastrointestinal (Abdomen): Nontender, +BS. No masses noted. Skin: no rashes, warm and dry Psychiatric: Alert. Mood and affect congruent. Results & Data Results & Data ([facility]) Vital Signs (Past 12 Hours) Vital Signs Temp Pulse Resp BP BP Pulse Ox O2 Del Method 12/15/22 07:00 36.8 C 79 18 125/75 93 Room Air 12/14/22 21:07 36.8 C 76 16 148/77 H 92 Room Air Resident Activity Tracking Resident Involvement: Resident Care Provided Care Provided: Adult Hospital Medicine
[2022-12-15] MEDS: GABAPENTIN 400 MG CAP PO SCH ×2 (08:51→15:21)
[2022-12-15] MEDS: ASPIRIN 81 MG ECTAB PO SCH (08:51)
[2022-12-15] MEDS: POTASSIUM CHLORIDE 10 MEQ TABCR PO SCH (08:51)
[2022-12-15] MEDS: CALCIUM 600MG + VIT D 400 IU TAB PO SCH (08:51)
[2022-12-15] MEDS: lamoTRIgine 100 MG TAB PO SCH (08:52)
[2022-12-15] MEDS: PANTOprazole 40 MG TAB PO SCH (08:52)
[2022-12-15] MEDS: CHOLECALCIFEROL 1,000 UNITS 25 MCG TAB PO SCH (08:52)
[2022-12-15] MEDS: VENLAFAXINE HCL XR 150 MG CAPXR PO SCH (08:52)
[2022-12-15] MEDS: ASCORBIC ACID 500 MG TAB PO SCH (08:52)
[2022-12-15] MEDS: amLODIPine BESYLATE 5 MG TAB PO SCH (08:52)
[2022-12-15] MEDS: DOCUSATE SODIUM 100 MG CAP PO SCH (08:52)
[2022-12-15] MEDS: MULTIVITAMIN TAB PO SCH (08:52)
[2022-12-15] MEDS: BACLOFEN 10 MG TAB PO SCH (08:53)
[2022-12-15] MEDS: FLUTICASONE PROPIONATE NA SPR 16 GM BTL NAE SCH (08:57)
[2022-12-15] MEDS ORDERED: POLYETHYLENE (MIRALAX) 17 GM PACK PO SCH (09:30)
[2022-12-15 10:12] LABS: Hematocrit (blood only) 29.3 % (37.0-47.0); Hemoglobin 9.8 g/dl (12.0-16.0); Mean Corpuscular Hemoglobin 31.5 pg (25.0-34.0); Mean Corpuscular Hgb Conc 33.4 g/dL (32.0-36.0); Mean Corpuscular Volume 94.2 fL (80.0-100.0); Mean Platelet Volume 9.6 fL (9.4-12.4); Platelet Count 234 K/uL (130-400); RDW Coefficient of Variation 13.8 % (11.5-14.5); RDW Standard Deviation 47.6 fL (36.4-46.3); Red Blood Count 3.11 M/uL (4.20-5.40); White Blood Count 6.47 K/ul (4.8-10.8)
[2022-12-15 10:39] LABS: Creatinine Clr Calc Pharmacy 43.4 ml/min; Est GFR (African American) 57.2 ml/min; Est GFR (Non-African American) 49.4 ml/min
--- NOTE | 2022-12-15 14:42 | Discharge Summary ---
Date of Service December 15, 2022 Admission HPI Per Admitting Provider Patient is a 67-year-old female with a significant past medical history of hypertension, dyslipidemia, depression, PTSD, osteopenia, osteoporosis, multiple sclerosis and thyroid goiter. Patient follows with the [facility] in [place]. She moved to [facility] approximately 2 years ago, but continues with care there institution. She reports that she sustained a ground-level fall landing on the lateral aspect of her LEFT hip today while outside smoking a cigarette. She did not strike her head. There is no loss of consciousness. The patient had no prefall symptoms of headaches, dizziness, lightheadedness, nausea, vomiting, diaphoresis, or presyncope otherwise. She reports that she was able to crawl into a seated position and eventually was able to ambulate to her apartment. When attempting to tie her shoes, she had intense pain to the LEFT-sided hip which caused her to fall again landing on her RIGHT knee. Patient intermittently complains of pain to the LEFT-sided hip. She denies any prior history of fracture or injury otherwise. Patient takes no blood thinners. She is uncertain of all of her medications, but [facility] She reports no history of significant surgeries in the past. She does smoke approximate 5 to 6 cigarettes daily. Patient denies any current headache, dizziness, headedness, chest pain, palpitations and shortness of breath, nausea, vomiting, abdominal discomfort, or numbness/weakness to the extremities. Admission Exam Per Admitting Provider VITAL SIGNS - Vital signs and nursing notes were reviewed. GENERAL - 67-year-old female appearing her stated age and in noticeable discomfort throughout the exam. HEAD - NC/AT. EYES - PERRL with EOMI bilaterally. Sclera anicteric. NOSE - Midline and without cyanosis. No epistaxis or purulent drainage noted. MOUTH/OROPHARYNX - Without perioral cyanosis. NECK - Neck with FROM. LUNGS - Chest wall symmetric without accessory muscle use, intercostals retractions, or central cyanosis. Normal vesicular breath sounds CTA B/L. No wheezes, rales, or rhonchi appreciated. CARDIAC - RRR with S1/S2. No murmur, rubs, or gallops appreciated. ABDOMEN - Abdominal contour without pulsations or visible masses. BS normoactive all four quadrants. No tenderness, palpable masses, hepatosplenomegaly, or ascites noted. MUSCULOSKELETAL - LEFT hip with moderate tenderness to palpation appreciated over the lateral malleolus. No tenderness extending into the upper leg or buttocks. Decreased AROM at affected joint. NEUROLOGIC/VASCULAR - Neurovascularly intact distally with +3/5 dorsalis pedis pulses palpated bilaterally. Normal sensation to light and sharp touch appreciated distally. PSYCH - A&Ox3 and cooperates fully with examiner. Pt is very pleasant and interacts well with examiner. Principal Diagnosis left femoral neck hip fracture s/p surgical correction Discharge Exam Constitutional NAD. Vitals WNL. Eyes Anicteric sclera. Respiratory CTA bilaterally. No rhonchi, wheezing, or crackles. Non labored breathing. Cardiovascular RRR. No murmur noted. No LE edema. Psychiatric Alert. Mood and affect congruent. Discharge Data Allergies Allergy/AdvReac Type Severity Reaction Status Date / Time alprazolam [From Xanax] Allergy Cramping Verified 12/10/22 15:34 of the Muscles aripiprazole [From Abilify] Allergy Cramping Verified 12/10/22 15:34 of the Muscles lisinopril Allergy Cramping Verified 12/10/22 15:34 of the Muscles Consultations 12/10/22 16:57 Consult Anesthesiology Routine Consult Orthopedic Surgery Routine 12/10/22 17:30 ED Decision to Admit Stat Procedures Performed Operation Date: 12/12/22 09:50 Actual Procedures p Left Hip Hemiarthroplasty(Left) - Max Alvarado DO Ordered Studies Hip/Pelvis X-Ray 12/10/22 14:37 SINGLE VIEW PELVIS; 2 VIEWS LEFT HIP CLINICAL HISTORY: Fall. Left hip pain. FINDINGS: AP view of the pelvis with AP and crosstable lateral views of the left hip are obtained. No prior studies are available for comparison at the time of dictation. The skeletal structures are osteopenic. There is an impacted, mildly displaced, and angulated fracture of the left femoral neck. Overlying soft tissue edema is noted. No additional fracture is seen involving the right hip or the bony pelvis. Mild arthritic change involving space narrowing is seen in the hips. The sacroiliac joints are normal. Lumbosacral spondylosis is partially visualized. Vascular calcifications are seen in the pelvis. IMPRESSION: Left femoral neck fracture as above. Electronically signed by: Zenon Restrepo M.D. 12/10/2022 3:20 PM Chest X-Ray 12/10/22 15:05 SUPINE PORTABLE AP CHEST RADIOGRAPH CLINICAL HISTORY: Hip fracture. COMPARISON STUDY: No previous studies for comparison. FINDINGS: Lung volumes are normal. Lungs are clear. There is no pneumothorax or pleural effusion. Cardiac size is normal. Mediastinal contours are normal. There is no evidence for pulmonary edema. [place]old projects over the left lower chest. Mild right lower lung interstitial thickening is noted. This may be chronic. IMPRESSION: 1. No definite acute cardiopulmonary findings. 2. Mild asymmetric right lower lung interstitial thickening. This may be chronic. ACT 112: Negative or not required by law. Electronically signed by: Jose Elder M.D. 12/10/2022 3:25 PM Hip X-Ray 12/12/22 14:25 LEFT HIP 2 VIEWS CLINICAL HISTORY: Postoperative examination. FINDINGS: AP and crosstable lateral views of the left hip are compared to study dated 12/10/2022. The skeletal structures are osteopenic. A left hip arthroplasty is in near anatomic alignment. No acute fracture is seen. Skin clips, a surgical drain, soft tissue swelling, and subcutaneous gas overlying the left hip are expected postoperative changes. A Ramirez catheter is in place. IMPRESSION: Expected postoperative findings status post left hip arthroplasty. No acute fracture is seen. Electronically signed by: Zenon Restrepo M.D. 12/12/2022 2:51 PM Hospital Course (1) Fracture of femoral neck, left: (2) Hypertension: (3) Dyslipidemia: (4) Bipolar disorder: (5) PTSD (post-traumatic stress disorder): (6) Multiple sclerosis: (7) Cigarette smoker: Plan Pt is a 67 yo female with PMH of MS, PTSD, bipolar disorder, HLD, and HTN presenting to the ER d/t a fall at her home on her sidewalk. Admission xray showed she had a left femoral neck fracture. Left Femoral Neck Fracture - known history of osteopenia/osteoporosis, receives care at [facility] (records were requested) - pt has been on alendronate 70 mg PO weekly for 3 months - pt takes calcium and vitamin D supplements at home; inpatient Vit D supplements were also given - surgical repair 12/12; pain controlled with current regimen of ketorolac 15 mg q6hr - counseled patient on the importance of smoking cessation in the setting of osteopenia/osteoporosis - PT/OT recommended inpatient rehab - continue aspirin 81 mg BID x6 weeks post surgery Constipation - resolved Chronic Conditions: HTN- continue home amlodipine 10 mg Dyslipidemia- continue home rosuvastatin PTSD/Bipolar- continue home medications MS- no prior flares or steroid requirement, continue home regimen FEN: Heart Healthy Code status: Full Code DVT ppx: SCDs, aspirin 81 mg BID Dispo:inpt rehab at [facility] Total Time Total Time Spent Total Time Spent (In Minutes): as per attending attestation Discharge Plan Discharge Items Patient Disposition: Transfer Inpatient Rehab Fac Reason For Visit: L HIP FXR Discharge Diagnosis: left femoral neck fracture s/p surgical correction Activity: Per Instructions section Non-emergency contact: Primary Care Provider and Surgeon Call non-emergency contact if: you have any medication questions, your pain is not controlled, your wound has increased drainage and your wound pain has increased Follow-up/Referrals: [facility] [Primary Care Provider] - Diet: Heart Healthy Addtl Attending Provider Instructions: Pt is a 67 yo female with PMH of MS, PTSD, bipolar disorder, HLD, and HTN presenting to the ER d/t a fall at her home on her sidewalk. Admission xray showed she had a left femoral neck fracture. Left Femoral Neck Fracture - known history of osteopenia/osteoporosis, receives care at [facility] (records were requested) - pt has been on alendronate 70 mg PO weekly for 3 months - pt takes calcium and vitamin D supplements at home; inpatient Vit D supplements were also given - surgical repair 12/12; pain controlled with current regimen of ketorolac 15 mg q6hr - counseled patient on the importance of smoking cessation in the setting of osteopenia/osteoporosis - PT/OT recommended inpatient rehab - continue aspirin 81 mg BID x6 weeks post surgery Constipation vs. post op ileus - pt has not had a BM in about a week (since a few days before surgery) - pt endorses no discomfort or complaints concerning her BM at this time - miralax daily start 12/15, senna HS - continue to monitor Chronic Conditions: HTN- continue home amlodipine 10 mg Dyslipidemia- continue home rosuvastatin PTSD/Bipolar- continue home medications MS- no prior flares or steroid requirement, continue home regimen FEN: Heart Healthy Code status: Full Code DVT ppx: SCDs, aspirin 81 mg BID Dispo:inpt rehab Pending Studies at Discharge: No Stand-Alone Forms: My [facility] Skilled Items Patient informed of condition?: Yes DNR: No Discharge Level of Care: Acute rehab Communicable Disease: No Discharge Prognosis: Stable Lines: None Urinary Catheter: No Medications and DC Order Prescriptions: New aspirin 81 mg Tablet,Delayed Release (Dr/Ec) 81 mg PO BID Qty: 60 1RF Continued cyclobenzaprine 10 mg Tablet 10 mg PO BID PRN (Reason: Muscle Spasm) alendronate 70 mg Tablet 70 mg PO WK baclofen 10 mg Tablet 10 mg PO BID amlodipine 10 mg Tablet 10 mg PO DAILY docusate sodium 100 mg Capsule 100 mg PO DAILY lamotrigine [Lamictal] 200 mg Tablet 200 mg PO BID gabapentin 400 mg Capsule 400 mg PO TID pantoprazole 40 mg Tablet,Delayed Release (Dr/Ec) 40 mg PO DAILY oxybutynin chloride 5 mg Tablet Extended Release 24hr 5 mg PO HS rosuvastatin 20 mg Tablet 10 mg PO HS Rx Instructions: 1/2 tablet dose venlafaxine 150 mg Capsule,Extended Release 24hr 150 mg PO BID ziprasidone HCl 20 mg Capsule 20 mg PO DAILY Rx Instructions: give with food (meal/snack) fluticasone propionate [Flonase Allergy Relief] 50 mcg/actuation [place],Suspension 2 spray INTRANASAL DAILY Rx Instructions: administer into each nostril calcium citrate-vitamin D3 [Calcium Citrate + D] 315 mg-5 mcg (200 unit) Tablet 2 tab PO DAILY dalfampridine 10 mg Tablet Extended Release 12 Hr 10 mg PO Q12H potassium chloride 20 mEq Tablet Extended Release 10 meq PO DAILY Rx Instructions: 1/2 tablet dose Discharge Orders: Discharge Order (Routine); Ordered 12/15/22 Ordered By: Sarah Cochran/Other Patient Handouts: Fx Femur ORIF About Admission Data Admit Date/Time: 12/10/22 18:39 Attending Provider: Denice Clemons Admit Provider: Robbie Roy Primary Care Provider: [facility] Other Providers: Alexandra Li ; Mary Dubno ; Daija Wheeler ; Dana Menard ; Nereida Wan ; Bradford Payan ; eMdardo Samuel ; Hilario Gandhi ; Bradley Mix ; Melany Mix ; Kulwant Shah ; Crystal Choudhary ; Brad Lindsey ; Tam Leary ; Mike Florian ; Bunny Us ; Jaelyn Small ; Jad Connell ; Deisy Ding ; Niki Connell ; Aristeo Younger ; Sujey Lane ; José Miguel Courtney ; Klarissa Ellis ; Alissa Yee ; Gabriel Cole ; Dorita Coy ; Kirstin Pemberton ; Latrice Leon ; Sabiha Stoll A ; Joby Stoll V ; Guy Martinez ; Mary Casanova ; Adriel Dodd ; Nikole Smith ; Joby Parker ; Harley Small ; Gilbert Mooney ; Taniya Teresa ; Ayanna Yao ; Joby Blanchard ; Jhonny Jimenez. ; Rosie Ribeiro. ; Solomon Elaine ; Bijan Us ; Deidra Orozco. ; Vikram Pandya ; Robbie Lopez ; Huy Newman ; Vikram Meza ; Bradford Galdamez Jr ; Isela Garner ; Lubna Storm A. ; Shayla Darling. ; Gabriel Leong ; Dana Angulo ; Bradley Moreno. ; Reed Stone I. ; Audrey Strauss S. ; Lubna Carroll A. ; Arianna Sharpe S. ; Anmol Marquis ; Max Alvarado ; Robbie Roy ; [facility] ; Cory Howard Other Interventions: Discharge Summary Assessment (RN) Last Done: 12/15/22 15:53 Supervising Physician Co-Signing Physician Notes Resident Physician Supervision Note: I independently interviewed and examined the patient and verified the vaz history and physical, reviewed labs and image studies and agree with resident findings and care plan. Resident Activity Tracking Resident Involvement: Resident Care Provided Care Provided: Adult [facility] Medicine
[2022-12-15] MEDS: KETOROLAC TROMETHAMINE 15 MG/ML VIAL IV PRN (15:21)
[2022-12-15] MEDS: CYCLOBENZAPRINE HCL 10 MG TAB PO PRN (15:22)
== END 2022-12-15 16:26 | DRG 522 ==
LOC: ED 14:22 → SUATTDRO 18:39 → 3N 18:39

== ENCOUNTER 2023-04-04 11:25 | Observation (INO) ==
[2023-04-04] MEDS ORDERED: ONDANSETRON INJ 2 MG/ML 2 ML VIAL IV STA (11:56)
[2023-04-04] MEDS ORDERED: FAMOTIDINE 20MG IV PUSH 20 MG/5 ML SYR IV STA (11:56)
[2023-04-04] MEDS ORDERED: SODIUM CHLORIDE 0.9% 1000ML 1,000 ML IV ONE (11:56)
--- NOTE | 2023-04-04 11:59 | Emergency Department Note ---
Impression & Plan Acute pancreatitis, Upper abdominal pain, Hyponatremia ED Provider Note NAME: KENNY HOPKINS AGE: 67 SEX: F ARRIVES VIA: Ambulance INFORMANT: Patient ED PROVIDER(S): Ernst Lanier MD CHIEF COMPLAINT: Abdominal pain, n/v PLAN: Disposition: Admit MEDICAL DECISION MAKING: The patient is a pleasant 67-year-old woman with a past medical history of multiple sclerosis, bipolar disorder, hypertension, hyperlipidemia, smoking, who presents to the emergency department via EMS for evaluation of generalized weakness, nausea vomiting with upper abdominal pain over the past several days. She reports that she has had mild cough and congestion. She wonders whether or not she may have contracted an illness when she went to a routine visit with her [facility] last week and describes an encounter with an acquaintance who was having similar symptoms. She denies diarrhea or urinary symptoms. On arrival the patient is in NAD, AFVSS. She appears clinically dry. She has mild epigastric discomfort without discrete ttp. EKG without overt acute ischemia. CXR with chronic right lower lung interstitial thickening. WBC, H/H, platelets wnl. Chemistry without acidosis. Sodium 130 and otherwise electrolytes unremarkable. LFTs without significant abnormality. HS Troponin wnl. Lipase is >4x upper limit of normal. Procalcitonin is undetectable. CT abd/pelvis demonstrates question of PNA however procal is not elevated. ?cystitis however UA without convincing evidence of infection. Cholelithiasis without GB wall thickening. LFTs are nonobstructive. ?colitis though patient denies diarrhea. Given patient's history of pancreatitis with elevated lipase suspect symptoms related to this. Upon re-evaluation the patient did feel improved following IVF hydration, famotidine, and Zofran but still nauseated/uncomfortable. Agrees with plan for admission. Case was d[place] [facility] who will evaluate the patient for admission. Triage Nursing notes reviewed and agree them. Prior/outside medical records reviewed Vital Signs: reviewed Differential diagnosis: Gastroenteritis, food borne illness, infections, appendicitis, diverticulitis, inflammatory bowel disease, obstruction, GI bleed, biliary pathology, volvulus, as well as other pathologies. ER treatment provided: See below. Diagnostics interpreted by me: ECG: NSR, 96 bpm, no ectopy, no overt ST elevation or depression. Cardiac Monitoring: An order for continuous cardiac monitoring was placed and demonstrated NSR, 96 bpm, no ectopy. Laboratory studies: See below Imaging studies: See below Consultation(s): Case was d/[place] R[place], [facility] [place] who will evaluate the patient for admission. HPI: The patient is a pleasant 67-year-old woman with a past medical history of multiple sclerosis, bipolar disorder, hypertension, hyperlipidemia, smoking, who presents to the emergency department via EMS for evaluation of generalized weakness, nausea vomiting with upper abdominal pain over the past several days. She reports that she has had mild cough and congestion. She wonders whether or not she may have contracted an illness when she went to a routine visit with her [facility] providers last week and describes an encounter with an acquaintance who was having similar symptoms. She denies diarrhea or urinary symptoms. ROS: See above HPI for pertinent positives & negatives. A total of 10 systems reviewed and were otherwise negative. VITALS:See Below PHYSICAL EXAMINATION: GENERAL: Awake, alert, fatigued-appearing, in no distress HENT: Normocephalic, atraumatic. Oropharynx with dry mucous membranes and otherwise unremarkable. EYES: Normal conjunctiva. Sclera non-icteric. NECK: Supple. No nuchal rigidity. FROM. No JVD. RESPIRATORY: Clear to auscultation. CARDIAC: Regular rate, normal rhythm. Extremities warm and well perfused. Pulses equal. ABDOMEN: Soft, non-distended. Mild epigastric discomfort without discrete tenderness to palpation. No rebound or guarding. No masses. RECTAL: Deferred. MUSCULOSKELETAL: Chest examination reveals no tenderness. The back is symmetrical on inspection without obvious abnormality. There is no CVA tenderness to palpation. No joint edema. LOWER EXTREMITIES: Calves are equal size bilaterally and non-tender. No edema. No discoloration. NEURO: No focal sensory or motor deficits noted. SKIN: No rash or jaundice noted. Ernst Lanier MD Past Med/Surg History Medical History Bipolar disorder Cigarette smoker Closed left hip fracture Dyslipidemia Fracture of femoral neck, left Hypertension Multiple sclerosis PTSD (post-traumatic stress disorder) Social History Smoking Status: Current every day smoker Tobacco Type: Cigarettes Cigarettes Per Day: 10 cigarettes per day; Second Hand Exposure: No; Do You Dip or Chew Tobacco: No; Tobacco Cessation Education Requested by Patient: No Hx Alcohol Use: Yes Alcohol type: wine Hx Substance Use: No Preferred Language: Kazakh Communication Ability: Effective Surveillance Sensor Operator Required: No Beliefs That Will Affect Care: None Current Living Situation: Alone Other Information That Helps Us Care for You: No Feels Safe at Home: Yes Safety Concerns: Feels Safe At This Time Assistive Devices: Denture - Upper, Denture - Lower and Glasses Allergies Allergies Allergy/AdvReac Type Severity Reaction Status Date / Time alprazolam [From Xanax] Allergy Cramping Verified 12/10/22 15:34 of the Muscles aripiprazole [From Abilify] Allergy Cramping Verified 12/10/22 15:34 of the Muscles lisinopril Allergy Cramping Verified 12/10/22 15:34 of the Muscles Home Meds Home Medications Medication Instructions Recorded Confirmed alendronate 70 mg tablet 70 mg PO WK 12/10/22 04/04/23 amlodipine 10 mg tablet 10 mg PO DAILY 12/10/22 04/04/23 baclofen 10 mg tablet 10 mg PO BID 12/10/22 04/04/23 calcium citrate 315 mg-vitamin D3 2 tab PO DAILY 12/10/22 04/04/23 5 mcg (200 unit) tablet (Calcium Citrate + D) cyclobenzaprine 10 mg tablet 10 mg PO BID PRN Muscle Spasm 12/10/22 04/04/23 dalfampridine 10 mg 10 mg PO Q12H 12/10/22 04/04/23 tablet,extended release,12 hr docusate sodium 100 mg capsule 100 mg PO DAILY 12/10/22 04/04/23 fluticasone propionate 50 2 spray intranasal DAILY 12/10/22 04/04/23 mcg/actuation nasal spray,suspension (Flonase Allergy Relief) gabapentin 400 mg capsule 400 mg PO TID 12/10/22 04/04/23 lamotrigine 200 mg tablet 200 mg PO BID 12/10/22 04/04/23 (Lamictal) oxybutynin chloride 5 mg 5 mg PO HS 12/10/22 04/04/23 tablet,extended release 24 hr pantoprazole 40 mg tablet,delayed 40 mg PO DAILY 12/10/22 04/04/23 release potassium chloride 20 mEq 10 meq PO DAILY 12/10/22 04/04/23 tablet,extended release rosuvastatin 20 mg tablet 10 mg PO HS 12/10/22 04/04/23 venlafaxine 150 mg 150 mg PO BID 12/10/22 04/04/23 capsule,extended release 24 hr ziprasidone HCl 20 mg capsule 20 mg PO DAILY 12/10/22 04/04/23 Results & Data (ED) Vital Signs Vital Signs - 24 hr 04/04/23 11:33 04/04/23 11:56 04/04/23 12:11 Temperature 36.9 C Temperature Source Oral Pulse Rate 76 78 86 Pulse Rate from SpO2 Sensor Pulse Rhythm Regular Respiratory Rate 18 Respiratory Effort / Characteristics Non-Labored Respiratory Depth Normal Blood Pressure 156/97 H Blood Pressure Mean 116 Pulse Oximetry 98 98 Oxygen Delivery Method Room Air Room Air Sepsis Recent Fever Within 48 Hours No Sepsis New/Unexplained Change in Mental Status No Sepsis Action Taken by Nursing No Action Required 04/04/23 13:00 04/04/23 14:21 04/04/23 15:43 Temperature Temperature Source Pulse Rate 79 74 75 Pulse Rate from SpO2 Sensor 79 75 76 Pulse Rhythm Respiratory Rate 17 17 17 Respiratory Effort / Characteristics Respiratory Depth Blood Pressure 157/85 H 174/97 H Blood Pressure Mean 109 122 Pulse Oximetry 98 97 99 Oxygen Delivery Method Sepsis Recent Fever Within 48 Hours Sepsis New/Unexplained Change in Mental Status Sepsis Action Taken by Nursing 04/04/23 16:15 Temperature Temperature Source Pulse Rate 72 Pulse Rate from SpO2 Sensor Pulse Rhythm Respiratory Rate Respiratory Effort / Characteristics Respiratory Depth Blood Pressure Blood Pressure Mean Pulse Oximetry Oxygen Delivery Method Sepsis Recent Fever Within 48 Hours Sepsis New/Unexplained Change in Mental Status Sepsis Action Taken by Nursing Laboratory Data Attestation: I reviewed the patient's lab results. 04/04/23 11:47 04/04/23 11:47 Lab Results 04/04/23 04/04/23 04/04/23 Range/Units 11:47 11:47 11:47 WBC 7.68 (4.8-10.8) K/ul RBC 4.91 (4.20-5.40) M/uL Hgb 14.7 (12.0-16.0) g/dl Hct 42.0 (37.0-47.0) % MCV 85.5 (80.0-100.0) fL MCH 29.9 (25.0-34.0) pg MCHC 35.0 (32.0-36.0) g/dL RDW Std Deviation 45.7 (36.4-46.3) fL RDW Coeff of Dick 14.5 (11.5-14.5) % Plt Count 292 (130-400) K/uL MPV 10.1 (9.4-12.4) fL Immature Gran % (Auto) 0.1 % Neut % (Auto) 86.6 % Lymph % (Auto) 4.8 % [place] % (Auto) 8.3 % Eos % (Auto) 0.1 % Baso % (Auto) 0.1 % Neut # (Auto) 6.64 H (1.40-6.50) K/uL Lymph # (Auto) 0.37 L (1.2-3.4) K/uL [place] # (Auto) 0.64 H (0.11-0.59) K/uL Eos # (Auto) 0.01 (0-0.50) K/uL Baso # (Auto) 0.01 (0-0.2) K/uL Immature Gran # (Auto) 0.01 (0.01-0.20) K/uL Sodium 130 L (136-145) mmol/L Potassium 3.8 (3.5-5.1) mmol/L Chloride 91 L (98-107) mmol/L Carbon Dioxide 29 (21-32) mmol/L Anion Gap 10 (3-11) BUN 15 (6-23) mg/dl Creatinine 0.85 (0.6-1.2) mg/dl Est Cr Clr Drug Dosing 50.3 ml/min Est GFR ( Amer) 81.6 ml/min Est GFR (Non-Af Amer) 70.4 ml/min BUN/Creatinine Ratio 17.6 (10-20) Glucose 119 H (70-99(Fasting)) mg/dl Calcium 9.8 (8.6-10.3) mg/dl Total Bilirubin 0.4 (0.2-1.0) mg/dl Direct Bilirubin 0.0 (0-0.2) mg/dl AST 29 (13-39) U/L ALT 15 (7-52) U/L Alkaline Phosphatase 138 H (34-104) U/L Troponin I High Sens 11.8 (0-14) pg/ml Total Protein 7.7 (6.0-8.3) gm/dl Albumin 4.7 (3.4-5.0) gm/dl Globulin 3.0 (2.5-4.0) gm/dl Albumin/Globulin Ratio 1.6 (0.9-2) Triglycerides 117 (0-150) mg/dl Lipase 421 H (11-82) U/L Procalcitonin (0-0.5) ng/ml Adenovirus (PCR) Not Detected (NotDetected) B. pertussis DNA (PCR) Not Detected (NotDetected) B.parapertussis DNA PCR Not Detected (NotDetected) C. pneumoniae DNA (PCR) Not Detected (NotDetected) Coronavirus OC43 (PCR) Not Detected (NotDetected) Coronavirus HKU1 (PCR) Not Detected (NotDetected) Coronavirus 229E (PCR) Not Detected (NotDetected) SARS-CoV-2 (PCR) Not Detected (NotDetected) Coronavirus NL63 (PCR) Not Detected (NotDetected) Human Metapneumovir PCR Not Detected (NotDetected) Influenza Type A (PCR) Not Detected (NotDetected) Influenza Type B (PCR) Not Detected (NotDetected) M. pneumoniae (PCR) Not Detected (NotDetected) Parainfluenza 1 (PCR) Not Detected (NotDetected) Parainfluenza 2 (PCR) Not Detected (NotDetected) Parainfluenza 3 (PCR) Not Detected (NotDetected) Parainfluenza 4 (PCR) Not Detected (NotDetected) RSV (PCR) Not Detected (NotDetected) Entero/Rhino (PCR) Not Detected (NotDetected) 04/04/23 Range/Units 11:47 WBC (4.8-10.8) K/ul RBC (4.20-5.40) M/uL Hgb (12.0-16.0) g/dl Hct (37.0-47.0) % MCV (80.0-100.0) fL MCH (25.0-34.0) pg MCHC (32.0-36.0) g/dL RDW Std Deviation (36.4-46.3) fL RDW Coeff of Dick (11.5-14.5) % Plt Count (130-400) K/uL MPV (9.4-12.4) fL Immature Gran % (Auto) % Neut % (Auto) % Lymph % (Auto) % [place] % (Auto) % Eos % (Auto) % Baso % (Auto) % Neut # (Auto) (1.40-6.50) K/uL Lymph # (Auto) (1.2-3.4) K/uL [place] # (Auto) (0.11-0.59) K/uL Eos # (Auto) (0-0.50) K/uL Baso # (Auto) (0-0.2) K/uL Immature Gran # (Auto) (0.01-0.20) K/uL Sodium (136-145) mmol/L Potassium (3.5-5.1) mmol/L Chloride (98-107) mmol/L Carbon Dioxide (21-32) mmol/L Anion Gap (3-11) BUN (6-23) mg/dl Creatinine (0.6-1.2) mg/dl Est Cr Clr Drug Dosing ml/min Est GFR ( Amer) ml/min Est GFR (Non-Af Amer) ml/min BUN/Creatinine Ratio (10-20) Glucose (70-99(Fasting)) mg/dl Calcium (8.6-10.3) mg/dl Total Bilirubin (0.2-1.0) mg/dl Direct Bilirubin (0-0.2) mg/dl AST (13-39) U/L ALT (7-52) U/L Alkaline Phosphatase (34-104) U/L Troponin I High Sens (0-14) pg/ml Total Protein (6.0-8.3) gm/dl Albumin (3.4-5.0) gm/dl Globulin (2.5-4.0) gm/dl Albumin/Globulin Ratio (0.9-2) Triglycerides (0-150) mg/dl Lipase (11-82) U/L Procalcitonin < 0.05 (0-0.5) ng/ml Adenovirus (PCR) (NotDetected) B. pertussis DNA (PCR) (NotDetected) B.parapertussis DNA PCR (NotDetected) C. pneumoniae DNA (PCR) (NotDetected) Coronavirus OC43 (PCR) (NotDetected) Coronavirus HKU1 (PCR) (NotDetected) Coronavirus 229E (PCR) (NotDetected) SARS-CoV-2 (PCR) (NotDetected) Coronavirus NL63 (PCR) (NotDetected) Human Metapneumovir PCR (NotDetected) Influenza Type A (PCR) (NotDetected) Influenza Type B (PCR) (NotDetected) M. pneumoniae (PCR) (NotDetected) Parainfluenza 1 (PCR) (NotDetected) Parainfluenza 2 (PCR) (NotDetected) Parainfluenza 3 (PCR) (NotDetected) Parainfluenza 4 (PCR) (NotDetected) RSV (PCR) (NotDetected) Entero/Rhino (PCR) (NotDetected) Administered Medications Amlodipine Besylate (Amlodipine Besylate 5 Mg Tab) 10 mg PO DAILY WIL Stop: 05/04/23 19:18 Last Admin: 04/04/23 20:05 Dose: 10 mg Documented By: ARNOLD Baclofen (Baclofen 10 Mg Tab) 10 mg PO BID WIL Stop: 05/04/23 20:59 Last Admin: 04/04/23 21:19 Dose: 10 mg Documented By: ARNOLD Enoxaparin Sodium (Enoxaparin Inj 40 Mg/0.4 Ml Syr) 40 mg SQ QPM WIL Stop: 05/04/23 21:44 Last Admin: 04/04/23 22:41 Dose: 40 mg Documented By: ARNOLD Gabapentin (Gabapentin 400 Mg Cap) 400 mg PO TID WIL Stop: 05/04/23 20:59 Last Admin: 04/04/23 21:27 Dose: 400 mg Documented By: ARNOLD Lactated Ringer's (Lr) 1,000 mls @ 150 mls/hr IV .Q6H40M WIL Stop: 04/05/23 21:58 Last Admin: 04/04/23 19:19 Dose: 150 mls/hr Documented By: ARNOLD Lamotrigine (Lamotrigine 100 Mg Tab) 200 mg PO BID WIL Stop: 05/04/23 20:59 Last Admin: 04/04/23 21:23 Dose: 200 mg Documented By: ARNOLD Miscellaneous (Dalfampridine- Order Awaiting Action) 1 each N/A QS WIL Stop: 05/05/23 00:00 Last Admin: 04/04/23 21:27 Dose: Not Given Documented By: ARNOLD Oxybutynin Chloride (Oxybutynin Chloride Xl 5 Mg Tabcr) 5 mg PO HS WIL Stop: 05/04/23 20:59 Last Admin: 04/04/23 21:23 Dose: 5 mg Documented By: ARNOLD Rosuvastatin Calcium (Rosuvastatin Calcium 10 Mg Tab) 10 mg PO HS [facility] Stop: 05/04/23 20:59 Last Admin: 04/04/23 21:24 Dose: 10 mg Documented By: ARNOLD Venlafaxine HCl (Venlafaxine Hcl Xr 150 Mg Capxr) 150 mg PO BID WIL Stop: 05/04/23 20:59 Last Admin: 04/04/23 21:24 Dose: 150 mg Documented By: ARNOLD Ziprasidone (Ziprasidone Hcl 20 Mg Cap) 20 mg PO HS [facility] Stop: 05/04/23 20:59 Last Admin: 04/04/23 21:24 Dose: 20 mg Documented By: ARNOLD Discontinued Medications Sodium Chloride (Nss 1000ml) 1,000 mls @ 999 mls/hr IV .Q1H1M ONE Stop: 04/04/23 12:56 Last Infusion: 04/04/23 13:45 Dose: 0 mls/hr Documented By: Admin: 04/04/23 12:09 Dose: 999 mls/hr Documented By: TRINA Famotidine (Pepcid 20mg Iv Push) 20 mg in 5 mls @ 2.5 mls/min IV NOW STA Stop: 04/04/23 11:57 Last Admin: 04/04/23 12:11 Dose: 2.5 mls/min Documented By: TRINA Lactated Ringer's (Lr) 1,000 mls @ 999 mls/hr IV .Q1H1M ONE Stop: 04/04/23 16:55 Last Infusion: 04/04/23 17:45 Dose: 0 mls/hr Documented By: Admin: 04/04/23 16:38 Dose: 999 mls/hr Documented By: TRINA Pantoprazole Sodium 40 mg/ (Syringe) 10 mls @ 5 mls/min IV NOW ONE Stop: 04/04/23 16:31 Last Admin: 04/04/23 16:35 Dose: 5 mls/min Documented By: TRINA Ioversol (Optiray 320 100ml) 90 ml IV ONCE ONE Stop: 04/04/23 12:51 Last Admin: 04/04/23 12:51 Dose: 90 ml Documented By: FARRUKH Ondansetron HCl (Ondansetron Inj 2 Mg/Ml 2 Ml Vial) 4 mg IV NOW STA Stop: 04/04/23 11:57 Last Admin: 04/04/23 12:13 Dose: 4 mg Documented By: TRINA Imaging Data Radiologist's Impression: Chest X-Ray 04/04/23 11:56 XR chest 1V portable HISTORY: Chest pain, nonspecific COMPARISON: Chest 12/10/2022. FINDINGS: No pneumothorax. No pleural effusions. The heart is normal in size. The left lung is clear. Mild interstitial thickening at the right lung base remains unchanged. This may be chronic. No new focal lung consolidations identified. No evidence for pulmonary edema. IMPRESSION: 1. Mild asymmetric right lower lung interstitial thickening. This remains unchanged and is likely chronic. 2. Otherwise, no acute process within the chest ACT 112: Negative or not required by law. Electronically signed by: Bradley Hernandez M.D. 04/04/2023 12:20 PM Abdomen/Pelvis CT 04/04/23 11:[address] WITH IV CONTRAST CT DOSE: 383.48 mGy.cm HISTORY: Lower abdominal pain. Nausea. Vomiting. TECHNIQUE: Multiaxial CT images of the abdomen and pelvis were performed following the use of intravenous contrast. A dose lowering technique was utilized adhering to the principles of ALARA. COMPARISON STUDY: None. FINDINGS: Ground glass densities and interstitial thickening within the right lower lobe posteriorly. This favors a mild pneumonitis. The left lung base is clear. No pneumoperitoneum. No pneumatosis. There is a left total hip arthroplasty. Old, healed distal sacral fracture is noted. Mild levoscoliosis and advanced degenerative changes within the lumbar spine. There is a 1 cm cyst within the central liver. The main portal vein is patent. There is a punctate gallstone noted. No gallbladder wall thickening. The pancreas, spleen, and adre nal glands are unremarkable. There are few subcentimeter bilateral renal hypodense lesions. These are technically too small to characterize but statistically represent cysts. No ureteral stones. No hydronephrosis. Moderate calcified plaque within the normal caliber abdominal aorta. No retroperitoneal or pelvic lymphadenopathy. No pelvic free fluid. This mild bladder wall thickening. The uterus and left ovary are unremarkable. There is a 1.6 cm right ovarian cyst. Questionable thickening of the descending colon and sigmoid colon is likely due to underdistention. No significant pericolonic fat stranding. A low-grade colitis is considered less likely but not entirely excluded. No dilated loops of bowel to suggest an obstruction. Normal appendix. Mildly distended fluid-filled stomach. However, no evidence for gastric outlet obstruction. IMPRESSION: 1. Mild bladder wall thickening. Recommend correlation with urinalysis to exclude a cystitis. 2. Interstitial thickening and patchy groundglass densities within the right lower lobe posteriorly. This favors a pneumonia. 3. Cholelithiasis. No gallbladder wall thickening. 4. Questionable thickening of the descending colon and sigmoid colon is likely due to underdistention. No significant pericolonic fat stranding. A low-grade colitis is considered less likely but not entirely excluded. 5. No evidence for a small bowel obstruction. 6. Mildly distended fluid-filled stomach. However, no evidence for gastric outlet obstruction. ACT 112: Negative or not required by law. Electronically signed by: Bradley Hernandez M.D. 04/04/2023 2:20 PM Discharge Plan Visit Data Chief Complaint: Illness Stated Complaint: WEAKNESS, NAUSEA, VOMITING ED Provider: Ernst Lanier Discharge Problem: Acute pancreatitis, Upper abdominal pain, Hyponatremia Patient Disposition: Admitted As Inpatient Discharge Instructions Interventions: ED Discharge Assessment Last Done: 04/04/23 18:10
[2023-04-04 12:16] LABS: Basophils # (auto) 0.01 K/uL (0-0.2); Basophils % (auto) 0.1 %; Eosinophils # (auto) 0.01 K/uL (0-0.50); Eosinophils % (auto) 0.1 %; Hemoglobin 14.7 g/dl (12.0-16.0); Immature Granulocytes # (auto) 0.01 K/uL (0.01-0.20); Immature Granulocytes % (auto) 0.1 %; Lymphocytes # (auto) 0.37 K/uL (1.2-3.4); Lymphocytes % (auto) 4.8 %; Mean Corpuscular Hemoglobin 29.9 pg (25.0-34.0); Mean Corpuscular Volume 85.5 fL (80.0-100.0); Mean Platelet Volume 10.1 fL (9.4-12.4); Monocytes # (auto) 0.64 K/uL (0.11-0.59); Monocytes % (auto) 8.3 %; Neutrophils # (auto) 6.64 K/uL (1.40-6.50); Neutrophils % (auto) 86.6 %; Platelet Count 292 K/uL (130-400); RDW Coefficient of Variation 14.5 % (11.5-14.5); RDW Standard Deviation 45.7 fL (36.4-46.3); Red Blood Count 4.91 M/uL (4.20-5.40); White Blood Count 7.68 K/ul (4.8-10.8)
[2023-04-04 12:21] LABS: Albumin Globulin Ratio 1.6 (0.9-2); Albumin Level 4.7 gm/dl (3.4-5.0); BUN Creatinine Ratio 17.6 (10-20); Bilirubin,Total 0.4 mg/dl (0.2-1.0); Calcium 9.8 mg/dl (8.6-10.3); Creatinine Clr Calc Pharmacy 50.3 ml/min; Est GFR (African American) 81.6 ml/min; Est GFR (Non-African American) 70.4 ml/min; Potassium 3.8 mmol/L (3.5-5.1); Total Protein 7.7 gm/dl (6.0-8.3)
--- NOTE | 2023-04-04 12:21 | XRay Report ---
XR chest 1V portable HISTORY: Chest pain, nonspecific COMPARISON: Chest 12/10/2022. FINDINGS: No pneumothorax. No pleural effusions. The heart is normal in size. The left lung is clear. Mild interstitial thickening at the right lung base remains unchanged. This may be chronic. No new f ocal lung consolidations identified. No evidence for pulmonary edema. IMPRESSION: 1. Mild asymmetric right lower lung interstitial thickening. This remains unchanged and is likely chr onic. 2. Otherwise, no acute process within the chest ACT 112: Negative or not required by law. Electronically signed by: Bradley Hernandez M.D. 04/04/2023 12:20 PM
[2023-04-04 12:26] LABS: Troponin I High Sensitivity 11.8 pg/ml (0-14)
[2023-04-04] MEDS ORDERED: OPTIRAY 320 100ml IV ONE (12:50)
[2023-04-04 12:56] LABS: Adenovirus PCR Not Detected (NotDetected); Bordetella parapertussis PCR Not Detected (NotDetected); Bordetella pertussis PCR Not Detected (NotDetected); Chlamydia pneumoniae PCR Not Detected (NotDetected); Coronavirus 229E PCR Not Detected (NotDetected); Coronavirus CoV-2 (COVID19)PCR Not Detected (NotDetected); Coronavirus HKU1 PCR Not Detected (NotDetected); Coronavirus NL63 PCR Not Detected (NotDetected); Coronavirus OC43PCR Not Detected (NotDetected); Human Metapneumovirus PCR Not Detected (NotDetected); Influenza A PCR Not Detected (NotDetected); Influenza B PCR Not Detected (NotDetected); Mycoplasma pneumoniae PCR Not Detected (NotDetected); Parainfluenza Virus 1 PCR Not Detected (NotDetected); Parainfluenza Virus 2 PCR Not Detected (NotDetected); Parainfluenza Virus 3 PCR Not Detected (NotDetected); Parainfluenza Virus 4 PCR Not Detected (NotDetected); Respiratory Syncytial VirusPCR Not Detected (NotDetected); Rhinovirus/Enterovirus PCR Not Detected (NotDetected)
--- NOTE | 2023-04-04 14:22 | CT Scan Report ---
ABDOMEN AND PELVIS CT WITH IV CONTRAST CT DOSE: 383.48 mGy.cm HISTORY: Lower abdominal pain. Nausea. Vomiting. TECHNIQUE: Multiaxial CT images of the abdomen and pelvis were performed following the use of intrave nous contrast. A dose lowering technique was utilized adhering to the principles of ALARA. COMPARISON STUDY: None. FINDINGS: Ground glass densities and interstitial thickening within the right lower lobe posteriorly. This favors a mild pneumonitis. The left lung base is clear. No pneumoperitoneum. No pneumatosis. Th ere is a left total hip arthroplasty. Old, healed distal sacral fracture is noted. Mild levoscoliosis and advanced degenerative changes within the lumbar spine. There is a 1 cm cyst within the central l iver. The main portal vein is patent. There is a punctate gallstone noted. No gallbladder wall thicke halina. The pancreas, spleen, and adrenal glands are unremarkable. There are few subcentimeter bilatera l renal hypodense lesions. These are technically too small to characterize but statistically represen t cysts. No ureteral stones. No hydronephrosis. Moderate calcified plaque within the normal caliber a bdominal aorta. No retroperitoneal or pelvic lymphadenopathy. No pelvic free fluid. This mild bladder wall thickening. The uterus and left ovary are unremarkable. There is a 1.6 cm right ovarian cyst. Q uestionable thickening of the descending colon and sigmoid colon is likely due to underdistention. No significant pericolonic fat stranding. A low-grade colitis is considered less likely but not entirel y excluded. No dilated loops of bowel to suggest an obstruction. Normal appendix. Mildly distended fl uid-filled stomach. However, no evidence for gastric outlet obstruction. IMPRESSION: 1. Mild bladder wall thickening. Recommend correlation with urinalysis to exclude a cystitis. 2. Interstitial thickening and patchy groundglass densities within the right lower lobe posteriorly. This favors a pneumonia. 3. Cholelithiasis. No gallbladder wall thickening. 4. Questionable thickening of the descending colon and sigmoid colon is likely due to underdistention . No significant pericolonic fat stranding. A low-grade colitis is considered less likely but not ent irely excluded. 5. No evidence for a small bowel obstruction. 6. Mildly distended fluid-filled stomach. However, no evidence for gastric outlet obstruction. ACT 112: Negative or not required by law. Electronically signed by: Bradley Hernandez M.D. 04/04/2023 2:20 PM
--- NOTE | 2023-04-04 15:48 | History & Physical Report ---
Date of Service April 04, 2023 Assessment & Plan (1) Acute pancreatitis: Plan: LR @ 150ml /hr overnight. NPO currently but advance diet as tolerated once nausea and vomiting have improved. LFTs unremarkable Triglyceride WNL Idiopathic (2) Abnormal CT of the chest: Plan: Groundglass opacities within right lower lobe posteriorly. WBC and procalcitonin normal. No significant consolidation on CT or CXR. Suspect most likely mild pneumonitis related to her vomiting. Continue to monitor for hypoxia or worsening respiratory symptoms (3) Cigarette smoker: Plan: Declines nicotine patch (4) Multiple sclerosis: Plan: No change to her routine chronic medications (5) Bipolar disorder: (6) Hypertension: (7) Dyslipidemia: Plan VTE Prophylaxis - Lovenox 40mg SQ daily Diet - NPO, advance diet as tolerated Disposition - admit to med/surg Admission and Anticipated Discharge Date Admission Date: April 04, 2023 History of Present Illness Chief Complaint: Epigastric pain, nausea and vomiting Primary Care Provider: [facility] Ricarda Johansen is a 67 year old female who presents to the ER with "dehydration", nausea and vomiting. Difficult to get a definitive timeline of symptoms from the patient but generally started feeling unwell around 1.5-2 weeks ago she went to the [place] and was around other sick people. She reports concern she might have COVID as she has been having some shortness of breath, frontal sinus pain, headache and generalized myalgias. She has not been eating and drinking well due to nausea and vomiting 1-2 times a day (unknown duration). Sipping pedialyte to try and stay hydrated. Initially she was having loose stools but now feels more constipation. Last BM this morning but was not much. No melena or hematochezia. Epigastric pain on palpation only, 0/10 severity without palpation, no radiation, unknown how long it has been going on for. Not taking her usual medications for last 4-5 days due to nausea/vomiting. No urinary symptoms. She denies any alcohol use. Reports a history of pancreatitis related to medications in the 1980s but cannot recall which medications. She has a history of multiple sclerosis but reports this is well controlled but cannot given me any symptoms she has had related to this. Allergies Allergy/AdvReac Type Severity Reaction Status Date / Time alprazolam [From Xanax] Allergy Cramping Verified 12/10/22 15:34 of the Muscles aripiprazole [From Abili] Allergy Cramping Verified 12/10/22 15:34 of the Muscles lisinopril Allergy Cramping Verified 12/10/22 15:34 of the Muscles Home Medications Medication Instructions Recorded Confirmed Type alendronate 70 mg tablet 70 mg PO WK 12/10/22 04/04/23 History amlodipine 10 mg tablet 10 mg PO DAILY 12/10/22 04/04/23 History baclofen 10 mg tablet 10 mg PO BID 12/10/22 04/04/23 History calcium citrate 315 mg-vitamin D3 2 tab PO DAILY 12/10/22 04/04/23 History 5 mcg (200 unit) tablet (Calcium Citrate + D) cyclobenzaprine 10 mg tablet 10 mg PO BID PRN Muscle Spasm 12/10/22 04/04/23 History dalfampridine 10 mg 10 mg PO Q12H 12/10/22 04/04/23 History tablet,extended release,12 hr docusate sodium 100 mg capsule 100 mg PO DAILY 12/10/22 04/04/23 History fluticasone propionate 50 2 spray intranasal DAILY 12/10/22 04/04/23 History mcg/actuation nasal spray,suspension (Flonase Allergy Relief) gabapentin 400 mg capsule 400 mg PO TID 12/10/22 04/04/23 History lamotrigine 200 mg tablet 200 mg PO BID 12/10/22 04/04/23 History (Lamictal) oxybutynin chloride 5 mg 5 mg PO HS 12/10/22 04/04/23 History tablet,extended release 24 hr pantoprazole 40 mg tablet,delayed 40 mg PO DAILY 12/10/22 04/04/23 History release potassium chloride 20 mEq 10 meq PO DAILY 12/10/22 04/04/23 History tablet,extended release rosuvastatin 20 mg tablet 10 mg PO HS 12/10/22 04/04/23 History venlafaxine 150 mg 150 mg PO BID 12/10/22 04/04/23 History capsule,extended release 24 hr ziprasidone HCl 20 mg capsule 20 mg PO DAILY 12/10/22 04/04/23 History Past Med/Surg History Medical History Bipolar disorder Cigarette smoker Closed left hip fracture Dyslipidemia Fracture of femoral neck, left Hypertension Multiple sclerosis PTSD (post-traumatic stress disorder) Social History Smoking Status: Current every day smoker Tobacco Type: Cigarettes Cigarettes Per Day: 10 cigarettes per day; Second Hand Exposure: No; Do You Dip or Chew Tobacco: No; Tobacco Cessation Education Requested by Patient: No Hx Alcohol Use: Yes Alcohol type: wine Hx Substance Use: No Preferred Language: Emir[place] Communication Ability: Effective Log Yard Manager Required: No Beliefs That Will Affect Care: None Current Living Situation: Alone Other Information That Helps Us Care for You: No Feels Safe at Home: Yes Safety Concerns: Feels Safe At This Time Assistive Devices: Denture - Upper, Denture - Lower and Glasses Review of Systems Review of Systems: All systems reviewed & are unremarkable except as noted in HPI & below Physical Exam Constitutional: WD/WN, vitals as above Eyes: PERRL, conjunctivae normal, anicteric sclerae ENMT: Mouth: + dry oral mucous membranes Respiratory: normal respiratory effort, lungs clear to auscultation Cardiovascular: RRR, no murmur, no edema Gastrointestinal (Abdomen): Inspection/Auscultation: abdomen normal to inspection; abdomen not distended Percussion/Palpation: + abdomen tender (epigastric) and abdomen soft; no guarding and abdomen not rigid Musculoskeletal: no cyanosis or clubbing, extremities motor strength 5/5 Skin: no rashes, warm and dry Neurologic: moves all extremities and awake; no focal motor deficits and not confused Cranial Nerves: normal facial strength Psychiatric: Orientation: alert and oriented x 3 Results & Data Results & Data Vital Signs (Past 12 Hours) Vital Signs Temp Pulse Resp BP Pulse Ox O2 Del Method 04/04/23 15:43 75 17 174/97 H 99 04/04/23 14:21 74 17 157/85 H 97 04/04/23 13:00 79 17 98 04/04/23 12:11 86 04/04/23 11:56 78 98 Room Air 04/04/23 11:33 36.9 C 76 18 156/97 H 98 Room Air Diagnostic Findings XR chest 1V portable HISTORY: Chest pain, nonspecific COMPARISON: Chest 12/10/2022. FINDINGS: No pneumothorax. No pleural effusions. The heart is normal in size. The left lung is clear. Mild interstitial thickening at the right lung base remains unchanged. This may be chronic. No new focal lung consolidations identified. No evidence for pulmonary edema. IMPRESSION: 1. Mild asymmetric right lower lung interstitial thickening. This remains unchanged and is likely chronic. 2. Otherwise, no acute process within the chest ABDOMEN AND PELVIS CT WITH IV CONTRAST CT DOSE: 383.48 mGy.cm HISTORY: Lower abdominal pain. Nausea. Vomiting. TECHNIQUE: Multiaxial CT images of the abdomen and pelvis were performed following the use of intravenous contrast. A dose lowering technique was utilized adhering to the principles of ALARA. COMPARISON STUDY: None. FINDINGS: Ground glass densities and interstitial thickening within the right lower lobe posteriorly. This favors a mild pneumonitis. The left lung base is clear. No pneumoperitoneum. No pneumatosis. There is a left total hip arthroplasty. Old, healed distal sacral fracture is noted. Mild levoscoliosis and advanced degenerative changes within the lumbar spine. There is a 1 cm cyst within the central liver. The main portal vein is patent. There is a punctate gallstone noted. No gallbladder wall thickening. The pancreas, spleen, and adrenal glands are unremarkable. There are few subcentimeter bilateral renal hypodense lesions. These are technically too small to characterize but statistically represent cysts. No ureteral stones. No hydronephrosis. Moderate calcified plaque within the normal caliber abdominal aorta. No retroperitoneal or pelvic lymphadenopathy. No pelvic free fluid. This mild bladder wall thickening. The uterus and left ovary are unremarkable. There is a 1.6 cm right ovarian cyst. Questionable thickening of the descending colon and sigmoid colon is likely due to underdistention. No significant pericolonic fat stranding. A low-grade colitis is considered less likely but not entirely excluded. No dilated loops of bowel to suggest an obstruction. Normal appendix. Mildly distended fluid-filled stomach. However, no evidence for gastric outlet obstruction. IMPRESSION: 1. Mild bladder wall thickening. Recommend correlation with urinalysis to exclude a cystitis. 2. Interstitial thickening and patchy groundglass densities within the right lower lobe posteriorly. This favors a pneumonia. 3. Cholelithiasis. No gallbladder wall thickening. 4. Questionable thickening of the descending colon and sigmoid colon is likely due to underdistention. No significant pericolonic fat stranding. A low-grade colitis is considered less likely but not entirely excluded. 5. No evidence for a small bowel obstruction. 6. Mildly distended fluid-filled stomach. However, no evidence for gastric outlet obstruction. Medications Administered ER Medications Given: NS 1L bolus Famotidine 20mg IV Ondansetron 4mg IV ECG Rate (beats per minute): 96 Rhythm: normal sinus Findings: + nonspecific-ST abn Comparison ECG Date: from (Dec 10, 2022) Change: no significant change Code Status & VTE Plan Code Status Full VTE Prophylaxis Plan VTE Prophylaxis will be ordered: Yes PG Care Time/CCT Total # of Minutes Spent Total Time Spent with Patient: Total time spent is greater than 50% in coordination of care (as documented) at patient's floor/unit and/or counseling patient: Coding Level of Care Code 39702 INT INP/OBS CARE 2/55MIN Diagnoses Acute pancreatitis K85.[address] of the chest R93.89 Cigarette smoker F17.210 Multiple sclerosis G35 Bipolar disorder F31.9 Hypertension I10 Dyslipidemia E78.5
[2023-04-04] MEDS ORDERED: LACTATED RINGER'S 1,000 ML IV ONE (15:55)
[2023-04-04] MEDS ORDERED: PANTOprazole 40 MG in SYRINGE 0 ML IV ONE (16:30)
[2023-04-04 17:35] LABS: Appearance Urine Clear (Clear); Bacteria Urine Automated Negative (Negative); Bilirubin Urine Negative (Negative); Blood Urine 1+ (Negative); Cast Urine Automated 0 /lpf (0-5); Color Urine Yellow; Epithelial Cell Urine Auto 0-5 /lpf (0-5); Glucose Urine UA Negative (Negative); Ketones Urine 1+ (Negative); Leukocyte Esterase Urine Negative (Negative); Nitrite Urine Negative (Negative); Protein Urine Negative (Negative); Specific Gravity Urine 1.028 (1.000-1.030); Urobilinogen Urine Negative (Negative)
[2023-04-04] MEDS: LACTATED RINGER'S 1,000 ML IV SCH (19:19)
[2023-04-04] MEDS ORDERED: PROMETHAZINE HCL 12.5 MG in SODIUM CHLORIDE 0.9% 50 ML IV PRN (19:19)
[2023-04-04] MEDS: amLODIPine BESYLATE 5 MG TAB PO SCH (20:05)
[2023-04-04] MEDS: BACLOFEN 10 MG TAB PO SCH (21:19)
[2023-04-04] MEDS: OXYBUTYNIN CHLORIDE XL 5 MG TABCR PO SCH (21:23)
[2023-04-04] MEDS: lamoTRIgine 100 MG TAB PO SCH (21:23)
[2023-04-04] MEDS: ROSUVASTATIN CALCIUM 10 MG TAB PO SCH (21:24)
[2023-04-04] MEDS: VENLAFAXINE HCL XR 150 MG CAPXR PO SCH (21:24)
[2023-04-04] MEDS: GABAPENTIN 400 MG CAP PO SCH (21:27)
[2023-04-04] MEDS ORDERED: MoRPHine SULFATE 2 MG/ML CARP IV PRN (21:41)
[2023-04-04] MEDS ORDERED: MoRPHine SULFATE 4 MG/ML 1 ML CARP\\VIAL IV PRN (21:49)
[2023-04-04] MEDS: ENOXAPARIN INJ 40 MG/0.4 ML SYR SQ SCH (22:41)
[2023-04-05] MEDS: LACTATED RINGER'S 1,000 ML IV SCH ×3 (02:00→18:02)
[2023-04-05] MEDS: ACETAMINOPHEN 325 MG TAB PO PRN ×2 (02:46→11:26)
[2023-04-05 07:11] LABS: Basophils # (auto) 0.03 K/uL (0-0.2); Basophils % (auto) 0.6 %; Eosinophils # (auto) 0.11 K/uL (0-0.50); Eosinophils % (auto) 2.2 %; Hematocrit (blood only) 39.3 % (37.0-47.0); Hemoglobin 13.8 g/dl (12.0-16.0); Immature Granulocytes # (auto) 0.03 K/uL (0.01-0.20); Immature Granulocytes % (auto) 0.6 %; Lymphocytes # (auto) 0.51 K/uL (1.2-3.4); Mean Corpuscular Hemoglobin 30.1 pg (25.0-34.0); Mean Corpuscular Hgb Conc 35.1 g/dL (32.0-36.0); Mean Corpuscular Volume 85.6 fL (80.0-100.0); Mean Platelet Volume 9.8 fL (9.4-12.4); Monocytes % (auto) 15.7 %; Neutrophils # (auto) 3.63 K/uL (1.40-6.50); Neutrophils % (auto) 70.9 %; Platelet Count 244 K/uL (130-400); RDW Coefficient of Variation 14.6 % (11.5-14.5); RDW Standard Deviation 45.1 fL (36.4-46.3); Red Blood Count 4.59 M/uL (4.20-5.40); White Blood Count 5.11 K/ul (4.8-10.8)
[2023-04-05 07:40] LABS: Albumin Globulin Ratio 1.7 (0.9-2); Albumin Level 4.1 gm/dl (3.4-5.0); BUN Creatinine Ratio 9.3 (10-20); Bilirubin,Total 0.3 mg/dl (0.2-1.0); Calcium 9.3 mg/dl (8.6-10.3); Est GFR (African American) 94.9 ml/min; Est GFR (Non-African American) 81.9 ml/min; Globulin 2.4 gm/dl (2.5-4.0); Potassium 3.7 mmol/L (3.5-5.1); Total Protein 6.5 gm/dl (6.0-8.3)
--- NOTE | 2023-04-05 07:47 | Hospitalist Progress Note ---
Date of Service April 05, 2023 Assessment & Plan (1) Acute pancreatitis: Plan: 67 y/o female with a PMHx of medication induced pancreatitis and MS presented with nausea, vomiting, and poor PO intake of approximately 2 weeks duration found to have pancreatitis admitted for symptom control now clinically improving and tolerating CLD. #Acute Pancreatitis Etiology unknown - denies alcohol use, LFTs WNL, TRGs WNL. Alk Phos slightly elevated at 138. Cholelithiasis without signs of cholecystitis. Appears to be idiopathic in nature. Lipase and Alk Phos downtrending. Patient initially NPO now slowly advancing diet. Patient tolerating CLD will advance. [] advance diet as tolerated [] cholelithiasis without signs of cholecystitis #Dehydration Patient adequately fluid resuscitated with 1L LR bolus and 2xmIVF x3L. Will decrease to closer to maintenance at 100 mL/hr LR as patient tolerating PO. Can d/c fluids once adequately tolerating PO. #Abnormal CT of the Chest Incidental finding of ground glass opacities RLL. Likely in the setting of repeated vomiting. No leukocytosis, fever, respiratory symptoms, or hypoxia. No consolidations seen. Procalcitonin normal. [] monitor oxygenation and respiratory status #Cigarette smoker Declines nicotine patch [] smoking cessation #Multiple Sclerosis Continue home regimen. Code status: full DVT ppx: Lovenox 40mg SQ daily FENGI: FLD decrease fluids to 100 mL/hr LR Dispo: MedSurg (obs), no anticipated dispo needs (2) Abnormal CT of the chest: (3) Cigarette smoker: (4) Multiple sclerosis: (5) Bipolar disorder: (6) Hypertension: (7) Dyslipidemia: Admission and Anticipated Discharge Date Admission Date: April 04, 2023 Supervising Physician Co-Signing Physician Notes I personally examined the patient and verified all vaz points of history and exam, discussed case, and agree with decision making with Dr Renteria feeling better ate clears well would like to advance. vitals noted nad heent nc at mmm breathing unlabored no accessory muscles good effort abd soft mild epigastric tenderness no guarding rebound or rigidity CBC, CMP, lipase noted pancreatitis - mild. improving. advance diet. home soon. etiology of pain not totally clear - lipase was up, pancreas reported as normal on CT - but with symptoms improving with treatment - pancreatitis as working diagnosis fits otherwise as above Subjective Patient notes feeling much improved this AM. Tolerating CLD. Minimal nausea. Minimal pain. No f/c/SOB/CP. Review of Systems Review of Systems: See HPi Physical Exam Physical Exam: Gen: well appearing female in NAD HEENT: AT NC Resp: CTAB no wheezing, no increased work of breathing CV: RRR no m/r/g clinically well perfused Abd: soft, slightly tender epigastric region otherwise non-tender, non-distended MSK: no gross deformities Skin: no rashes or bruising, warm and dry Neuro: alert and oriented Psych: appropriate mood and affect Results & Data Results & Data Vital Signs (Past 12 Hours) Vital Signs Temp Pulse Resp BP Pulse Ox O2 Del Method 04/05/23 07:39 36.6 C 80 16 119/73 97 Room Air 04/05/23 03:00 71 116/83 Laboratory Results 04/05/23 06:44 04/05/23 06:44 Resident Activity Tracking Resident Involvement: Resident Care Provided Care Provided: Adult Hospital Medicine
[2023-04-05] MEDS: DOCUSATE SODIUM 100 MG CAP PO SCH (08:30)
[2023-04-05] MEDS: FLUTICASONE PROPIONATE NA SPR 16 GM BTL NAE SCH (08:31)
[2023-04-05] MEDS: VENLAFAXINE HCL XR 150 MG CAPXR PO SCH ×2 (08:31→20:12)
[2023-04-05] MEDS: lamoTRIgine 100 MG TAB PO SCH ×2 (08:31→20:12)
[2023-04-05] MEDS: BACLOFEN 10 MG TAB PO SCH ×2 (08:31→20:11)
[2023-04-05] MEDS: amLODIPine BESYLATE 5 MG TAB PO SCH (08:31)
[2023-04-05] MEDS: GABAPENTIN 400 MG CAP PO SCH ×3 (08:36→20:12)
--- NOTE | 2023-04-05 10:50 | Electrocardiogram Report ---
Test Reason : Blood Pressure : / mmHG Vent. Rate : 096 BPM Atrial Rate : 096 BPM P-R Int : 130 ms QRS Dur : 098 ms QT Int : 364 ms P-R-T Axes : 051 074 076 degrees QTc Int : 459 ms Normal sinus rhythm ST depression consider inferolateral ischemia Abnormal ECG When compared with ECG of 10-DEC-2022 14:32, Vent. rate has increased BY [address] changes are worse Confirmed by Anmol Carter ([id number] on 04/05/2023 10:50:09 AM Referred By: [facility] Confirmed By:Anmol Carter
[2023-04-05] MEDS: PANTOprazole 40 MG in SYRINGE 0 ML IV SCH (11:26)
--- NOTE | 2023-04-05 16:35 | Billing Data ---
Date of Service April 05, 2023 Coding Level of Care Code 78780 SUB INP/OBS CARE
[2023-04-05] MEDS: OXYBUTYNIN CHLORIDE XL 5 MG TABCR PO SCH (20:12)
[2023-04-05] MEDS: ROSUVASTATIN CALCIUM 10 MG TAB PO SCH (20:12)
[2023-04-05] MEDS: ENOXAPARIN INJ 40 MG/0.4 ML SYR SQ SCH (20:12)
[2023-04-06 07:24] LABS: Albumin Globulin Ratio 1.5 (0.9-2); Albumin Level 3.8 gm/dl (3.4-5.0); BUN Creatinine Ratio 7.1 (10-20); Bilirubin,Total 0.3 mg/dl (0.2-1.0); Calcium 8.9 mg/dl (8.6-10.3); Creatinine Clr Calc Pharmacy 36.2 ml/min; Est GFR (African American) 58.5 ml/min; Est GFR (Non-African American) 50.4 ml/min; Globulin 2.5 gm/dl (2.5-4.0); Potassium 4.6 mmol/L (3.5-5.1); Total Protein 6.3 gm/dl (6.0-8.3)
[2023-04-06] MEDS: GABAPENTIN 400 MG CAP PO SCH (08:15)
[2023-04-06] MEDS: amLODIPine BESYLATE 5 MG TAB PO SCH (08:15)
[2023-04-06] MEDS: lamoTRIgine 100 MG TAB PO SCH (08:15)
[2023-04-06] MEDS: VENLAFAXINE HCL XR 150 MG CAPXR PO SCH (08:15)
[2023-04-06] MEDS: BACLOFEN 10 MG TAB PO SCH (08:15)
[2023-04-06] MEDS: DOCUSATE SODIUM 100 MG CAP PO SCH (08:16)
[2023-04-06] MEDS: FLUTICASONE PROPIONATE NA SPR 16 GM BTL NAE SCH (08:16)
[2023-04-06] MEDS: PANTOprazole 40 MG in SYRINGE 0 ML IV SCH (12:11)
--- NOTE | 2023-04-06 12:16 | Discharge Summary ---
Date of Service April 06, 2023 Admission HPI Per Admitting Provider Ricarda Johansen is a 67 year old female who presents to the ER with "dehydration", nausea and vomiting. Difficult to get a definitive timeline of symptoms from the patient but generally started feeling unwell around 1.5-2 weeks ago she went to the [place] and was around other sick people. She reports concern she might have COVID as she has been having some shortness of breath, frontal sinus pain, headache and generalized myalgias. She has not been eating and drinking well due to nausea and vomiting 1-2 times a day (unknown duration). Sipping pedialyte to try and stay hydrated. Initially she was having loose stools but now feels more constipation. Last BM this morning but was not much. No melena or hematochezia. Epigastric pain on palpation only, 0/10 severity without palpation, no radiation, unknown how long it has been going on for. Not taking her usual medications for last 4-5 days due to nausea/vomiting. No urinary symptoms. She denies any alcohol use. Reports a history of pancreatitis related to medications in the 1980s but cannot recall which medications. She has a history of multiple sclerosis but reports this is well controlled but cannot given me any symptoms she has had related to this. Admission Exam Per Admitting Provider Constitutional: WD/WN, vitals as above Eyes: PERRL, conjunctivae normal, anicteric sclerae ENMT: Mouth: + dry oral mucous membranes Respiratory: normal respiratory effort, lungs clear to auscultation Cardiovascular: RRR, no murmur, no edema Gastrointestinal (Abdomen): Inspection/Auscultation: abdomen normal to inspection; abdomen not distended Percussion/Palpation: + abdomen tender (epigastric) and abdomen soft; no guarding and abdomen not rigid Musculoskeletal: no cyanosis or clubbing, extremities motor strength 5/5 Skin: no rashes, warm and dry Neurologic: moves all extremities and awake; no focal motor deficits and not confused Cranial Nerves: normal facial strength Psychiatric: Orientation: alert and oriented x 3 Principal Diagnosis Acute Pancreatitis Discharge Exam Constitutional WD/WN, vitals as above Eyes Anicteric sclerae ENMT External ears and nose normal. Moist mucous membranes. Respiratory normal respiratory effort, lungs clear to auscultation Cardiovascular RRR, no murmur, no edema Gastrointestinal (Abdomen) normal bowel sounds, soft, nontender, no hepatosplenomegaly Skin no rashes, warm and dry Psychiatric A+Ox3, euthymic affect Discharge Data Allergies Allergy/AdvReac Type Severity Reaction Status Date / Time alprazolam [From Xanax] Allergy Cramping Verified 12/10/22 15:34 of the Muscles aripiprazole [From Abilify] Allergy Cramping Verified 12/10/22 15:34 of the Muscles lisinopril Allergy Cramping Verified 12/10/22 15:34 of the Muscles Consultations 04/04/23 15:40 ED Decision to Admit Stat Ordered Studies 04/04/23 11:59 CT abd pelvis IV con only Stat Chest X-Ray 04/04/23 11:56 XR chest 1V portable HISTORY: Chest pain, nonspecific COMPARISON: Chest 12/10/2022. FINDINGS: No pneumothorax. No pleural effusions. The heart is normal in size. The left lung is clear. Mild interstitial thickening at the right lung base remains unchanged. This may be chronic. No new focal lung consolidations identified. No evidence for pulmonary edema. IMPRESSION: 1. Mild asymmetric right lower lung interstitial thickening. This remains unchanged and is likely chronic. 2. Otherwise, no acute process within the chest ACT 112: Negative or not required by law. Electronically signed by: Bradley Hernandez M.D. 04/04/2023 12:20 PM Abdomen/Pelvis CT 04/04/23 11:[address] WITH IV CONTRAST CT DOSE: 383.48 mGy.cm HISTORY: Lower abdominal pain. Nausea. Vomiting. TECHNIQUE: Multiaxial CT images of the abdomen and pelvis were performed following the use of intravenous contrast. A dose lowering technique was utilized adhering to the principles of ALARA. COMPARISON STUDY: None. FINDINGS: Ground glass densities and interstitial thickening within the right lower lobe posteriorly. This favors a mild pneumonitis. The left lung base is clear. No pneumoperitoneum. No pneumatosis. There is a left total hip arthroplasty. Old, healed distal sacral fracture is noted. Mild levoscoliosis and advanced degenerative changes within the lumbar spine. There is a 1 cm cyst within the central liver. The main portal vein is patent. There is a punctate gallstone noted. No gallbladder wall thickening. The pancreas, spleen, and adrenal glands are unremarkable. There are few subcentimeter bilateral renal hypodense lesions. These are technically too small to characterize but statistic ally represent cysts. No ureteral stones. No hydronephrosis. Moderate calcified plaque within the normal caliber abdominal aorta. No retroperitoneal or pelvic lymphadenopathy. No pelvic free fluid. This mild bladder wall thickening. The uterus and left ovary are unremarkable. There is a 1.6 cm right ovarian cyst. Questionable thickening of the descending colon and sigmoid colon is likely due to underdistention. No significant pericolonic fat stranding. A low-grade colitis is considered less likely but not entirely excluded. No dilated loops of bowel to suggest an obstruction. Normal appendix. Mildly distended fluid-filled stomach. However, no evidence for gastric outlet obstruction. IMPRESSION: 1. Mild bladder wall thickening. Recommend correlation with urinalysis to exclude a cystitis. 2. Interstitial thickening and patchy groundglass densities within the right lower lobe posteriorly. This favors a pneumonia. 3. Cholelithiasis. No gallbladder wall thickening. 4. Questionable thickening of the descending colon and sigmoid colon is likely due to underdistention. No significant pericolonic fat stranding. A low-grade colitis is considered less likely but not entirely excluded. 5. No evidence for a small bowel obstruction. 6. Mildly distended fluid-filled stomach. However, no evidence for gastric outlet obstruction. ACT 112: Negative or not required by law. Electronically signed by: Bradley Hernandez M.D. 04/04/2023 2:20 PM Hospital Course (1) Acute pancreatitis: Ricarda Johansen is a 67 year-old female with a PMHx of medication induced pancreatitis and MS presented with nausea, vomiting, and poor PO intake of approximately 2 weeks duration found to have pancreatitis admitted for symptom control. Acute Pancreatitis Etiology unknown - denies alcohol use, LFTs WNL, TRGs WNL. Alk Phos slightly elevated at 138 but decreased to normal range of 93. Cholelithiasis without signs of cholecystitis. Appears to be idiopathic in nature. Lipase and Alk Phos downtrended. Patient initially NPO but slowly advanced diet which patient tolerated well. Pain controlled with Tylenol and no nausea. Upon chart review, could consider Ziprasidone as possible inciting factor for pancreatitis- would recommend discussion of alternatives/pros and cons with PCP/psychiatry if Ziprasidone is potentially precipitating pancreatitis. Dehydration Patient adequately fluid resuscitated with 1L LR bolus and 2xmIVF x3L. IV fluids discontinued as patient was adequately tolerating PO. Abnormal CT of the Chest Incidental finding of ground glass opacities RLL. Likely in the setting of repeated vomiting. No leukocytosis, fever, respiratory symptoms, or hypoxia. No consolidations seen. Procalcitonin normal. Cigarette smoker Declines nicotine patch. Advised patient of smoking cessation. Multiple Sclerosis Continue home regimen. (2) Abnormal CT of the chest: (3) Cigarette smoker: (4) Multiple sclerosis: (5) Bipolar disorder: (6) Hypertension: (7) Dyslipidemia: Total Time Total Time Spent Total Time Spent (In Minutes): I spent 25 minutes seeing the patient, reviewing results, and documenting. Discharge Plan Discharge Items Patient Disposition: Home - Self-Care Reason For Visit: ACUTE PANCREATITIS Discharge Diagnosis: Acute Pancreatitis Activity: Per Instructions section Non-emergency contact: Primary Care Provider Call non-emergency contact if: you have any medication questions, your symptoms worsen and your temperature is above 101.5 Follow-up/Referrals: [facility],Hospital [Primary Care Provider] - (PLEASE CALL PCP AND MAKE AN APPOINTMENT IN 7-10 DAYS FOR HOSPITAL FOLLOW UP.) Diet: Regular Addtl Attending Provider Instructions: Ricarda, you were admitted to the hospital for pancreatitis. You were treated with bowel rest and pain medication. As your symptoms improved, you were able to slowly increase your food and liquid intake. As we discussed, there was no clear "trigger" that lead to your pancreatitis. However at least one of your medications (including Ziprasidone) could have contributed. We recommend that you follow up with your primary care doctor and discuss this further. You will be discharged on all of your previous home medications. Follow-up appointments: Make a follow-up appointment with your PCP within the next week. It is very important that you follow up with them shortly after discharge from the hospital. Medications: Your medication list has been reviewed and reconciled upon discharge to ensure accuracy and continuity of care. An updated list of all your medications is included with your hospital discharge paperwork. Please review this list- we did not make any intentional changes to your home medications. CALL 911 OR GO TO THE EMERGENCY DEPARTMENT if you experience any of the following: Sudden, severe abdominal pain or nausea/vomiting Severe chest pain, or chest pain that radiates (moves) to your jaw or arm Sudden, severe shortness of breath or difficulty breathing Thank you for allowing us to participate in your care. Pending Studies at Discharge: No Stand-Alone Forms: [facility], Smoking Cessation Medications and DC Order Prescriptions: Continued cyclobenzaprine 10 mg Tablet 10 mg PO BID PRN (Reason: Muscle Spasm) alendronate 70 mg Tablet 70 mg PO WK baclofen 10 mg Tablet 10 mg PO BID amlodipine 10 mg Tablet 10 mg PO DAILY docusate sodium 100 mg Capsule 100 mg PO DAILY lamotrigine [Lamictal] 200 mg Tablet 200 mg PO BID gabapentin 400 mg Capsule 400 mg PO TID Rx Instructions: pt takes BID pantoprazole 40 mg Tablet,Delayed Release (Dr/Ec) 40 mg PO DAILY oxybutynin chloride 5 mg Tablet Extended Release 24hr 5 mg PO HS rosuvastatin 20 mg Tablet 10 mg PO HS Rx Instructions: 1/2 tablet dose venlafaxine 150 mg Capsule,Extended Release 24hr 150 mg PO BID ziprasidone HCl 20 mg Capsule 20 mg PO DAILY Rx Instructions: give with food (meal/snack) fluticasone propionate [Flonase Allergy Relief] 50 mcg/actuation [place],Suspension 2 spray INTRANASAL DAILY Rx Instructions: administer into each nostril calcium citrate-vitamin D3 [Calcium Citrate + D] 315 mg-5 mcg (200 unit) Tablet 2 tab PO DAILY Rx Instructions: per pt she takes thursday, wednesdays and thursday and just once a day dalfampridine 10 mg Tablet Extended Release 12 Hr 10 mg PO Q12H Rx Instructions: Per pt she takes BID potassium chloride 20 mEq Tablet Extended Release 10 meq PO DAILY Rx Instructions: 1/2 tablet dose Discharge Orders: Discharge Order (Routine); Ordered 04/06/23 Ordered By: Shauna Cochran/Other Patient Handouts: Pancreatitis Acute Dc Admission Data Admit Date/Time: 04/04/23 16:48 Attending Provider: Luis Quinn Admit Provider: Zana Rm Primary Care Provider: [facility] Other Providers: Zana Rm Other Interventions: Discharge Summary Assessment (RN) Last Done: 04/06/23 12:31 Supervising Physician Co-Signing Physician Notes I also saw the patient confirmed vaz portions of the history and examination. Discussed the case with the resident physician. I agree with the impression and plan as noted in resident documentation The patient is without complaints this morning. She tolerated a regular diet this morning (eggs and toast) without abdominal pain, nausea, or vomiting. We discussed gradual advancement of her diet upon discharge; discussed low-fat, smaller more frequent meals; she has been through this before so was able to verbalize pretty good understanding of what and when she should be eating. Exam 120/71, 69, 16, 36.7, 97% on room air Pleasant. Alert. No distress appreciated. Respirations are nonlabored. Heart is regular. Abdomen soft and nontender upon my palpation. Data Sodium 140, potassium 4.6, BUN 8, creatinine 1.12 Lipase 251 (down from 283) ALT 16, alkaline phosphatase 93, AST 29 Impression and plan Pancreatitis Mild/improved Tolerating p.o.; no pain, nausea, vomiting Appropriate for discharge today Diet as discussed PCP follow-up within 1 week Discussed indications for return to emergency department/hospital
== END 2023-04-06 13:05 | disposition home or self-care (01) ==
LOC: ED 11:25 → 3W 11:25 → SUATTDRO 16:48 → 3W 18:10